=== PATIENT | female | born 1985 | race African-American/Black ===

== ENCOUNTER 2018-05-23 13:27 | Inpatient (IN) ==
[2018-05-23] MEDS ORDERED: 0.9 % Sodium Chloride 1,000 ML IVC ONE ×3 (13:29→16:33)
--- NOTE | 2018-05-23 13:40 | Emergency Department Note ---
Disposition Clinical Impression: Elevated troponin, Hyperkalemia, Acute hepatic encephalopathy Altered mental status Qualifiers: Altered mental status type: unspecified Qualified Code(s): R41.82 - Altered mental status, unspecified Diabetic ketoacidosis Qualifiers: Diabetes mellitus type: type 1 Diabetes mellitus complication detail: without coma Qualified Code(s): E10.10 - Type 1 diabetes mellitus with ketoacidosis without coma Disposition: Admitted As Inpatient Condition: Critical Time of Disposition: 17:16 General Adult HPI - General Chief complaint: ED Altered Mental Status Stated complaint: Altered mental status Time Seen by Provider: 05/23/18 13:29 Source: EMS Mode of arrival: EMS Limitations: altered mental status Nursing Notes Reviewed: Yes Vital Signs Reviewed: Yes - History of Present Illness HPI Narrative: This Is a 32-year-old female with past medical history significant for heroin de pendency, depression, history of suicidal ideation, diabetes who presents via EMS with altered mental status and confusion. Per EMS, patient has not used heroin for the past 4 days. EMS was called by patient's father. On EMS arrival, patient was noted to be altered and unresponsive. Blood glucose was greater than 400 Otherwise no further information able to be obtained at this time. Patient is altered, and continues to moan and groan, but will not respond to verbal or tactile stimulation. Per mother, patient was found by father passed out on the bathroom floor about 3 days ago. He found her with needles, and a bag of what she thinks was heroin. Father took away needles and drugs, but suspects patient may have been able to find another needle. Over the past night, patient was increasingly agitated, nauseous, vomiting, combative. Pt was found this morning somnolent, lethargic. Father then called EMS to bring patient to ED. Pt Subjective Complaint: AMS Onset (ago): day(s) (3 days ago) Associated symptoms: Reports: other (Altered mental status and confusion) - Related Data Home Medications Medication Instructions Recorded Confirmed Etonogestrel [Nexplanon] 68 mg SQ DAILY 11/24/17 11/24/17 Lantus 45 units SQ HS 11/24/17 11/24/17 NovoLOG See Protocol SQ TID 11/24/17 11/24/17 RX: Sertraline [Zoloft] 1 tab PO DAILY 11/24/17 11/24/17 Allergies Allergy/AdvReac Type Severity Reaction Status Date / Time No Known Allergies Allergy Verified 10/30/15 14:08 Limitations: ROS unobtainable due to patients medical condition Past Medical History - Past Medical History Source: old records reviewed, obtained from family Medical history: Reports: diabetes, other Surgical history: Reports: , other Psychiatric history: Reports: anxiety, depression, prior suicide attempt - Social History Smoking Status: Never smoker Smokeless Tobacco Status: No Alcohol use: Reports: none Drug use: Reports: none Physical Exam - General Limitations: altered mental status General appearance: appears intoxicated, lethargic - Head Head exam: atraumatic, normocephalic, normal inspection - Eye Eye exam: Present: mydriasis. Absent: scleral icterus - ENT ENT exam: mucous membranes dry - Chest Chest inspection: Present: normal inspection, symmetric chest wall rise - Respiratory Respiratory exam: Present: normal lung sounds bilaterally - Cardiovascular Cardiovascular exam: Present: regular rate, normal rhythm, +S1, +S2 - Abdominal Exam Abdominal exam: Present: soft, normal bowel sounds. Absent: distention, guarding, rebound, rigidity - Extremities Exam Extremities exam: Present: normal inspection, full ROM, tenderness - Neurological Exam Neurological exam: Present: other (Altered mental status; confused; unresponsive to verbal or tactile stimulation) - Expanded Neurological Exam Coma Scale Eye Opening: To Pain Coma Scale Motor Response: Withdraws to Pain Coma Scale Verbal Response: Incomprehensible Coma Scale Total: 8 - Skin Skin exam: Present: dry, other (Multiple boils, abrasion, skin lesions on upper and lower extremities.) Course - Reevaluation(s) Reevaluation #1: Patient seen and examined with Dr. Tan and Dr. Short. Patient presents via EMS with altered mental status. Patient does not respond to verbal or tactile stimulation. EMS notes patient had glucose greater than 400. Patient has history of IV drug abuse. We will attempt to obtain IV access, give fluid bolus, ordered EKG, chest CT of the head without contrast, x-ray chest. We will obtain routine labs. We will attempt to get further history Time: 14:15 Reevaluation #2: Initial vitals show T = 89.9, HR = 83, RR = 23, BP = 85/48, O2 = 100%. We will attempt to obtain IV access, and give liter bolus of fluids. Given patient's temperature, will use warm blankets and bear hugger warmer. Time: 14:17 Reevaluation #3: Unable to obtain IV access. Instead I O access was obtained. Femoral line was placed by Dr. Short in right femoral vein. Lab work notable for U tox showing positive cocaine. Urinalysis showed glucose greater than 1000, ketones, moderate blood. Head CT was negative. VBG was notable for pH = 6.89, CO2 = less than 13. Ammonia = 227, troponin = 1.02, beta hydroxybutyric acid = greater than 2.00. Patient was started on fluids, then bicarbonate and bicarbonate drip. Also was given lactulose and aspirin. Time: 16:14 Additional Reevaluation(s): Lab work showed ammonia = 227, creatinine kinase = 292, troponin = 1.02. Additionally an 9 gap = 25, potassium = 8.3. Lactic acid = 2.2. Glucose = 1275. Patient given calcium gluconate for hyperkalemia. Given lactulose for elevated ammonia. Started on insulin drip. Corrected sodium = 139. Patient additionally on bicarbonate drip. Patient will be transferred to ICU. Specialty Cook Dr. Shultz accepted patient. Vital Signs Temperature 89.9 F L 05/23/18 13:35 Pulse Rate 83 05/23/18 13:35 Respiratory Rate 23 05/23/18 13:35 Blood Pressure 85/48 05/23/18 13:35 O2 Sat by Pulse Oximetry 100 05/23/18 13:35 Temperature 92.0 F L 05/23/18 16:57 Pulse Rate 97 05/23/18 16:57 Respiratory Rate 30 05/23/18 16:57 Blood Pressure 90/56 05/23/18 16:57 O2 Sat by Pulse Oximetry 100 05/23/18 16:57 Oxygen Delivery Oxygen Delivery Room Air Medical Decision Making - [place] Narrative Medical decision making narrative: 7:28-year-old female with past medical history significant for insulin-dependent diabetes mellitus, heroin addiction, previous suicidal ideation who presents with altered mental status via EMS. Patient was found using heroin 3 days ago in her home. It was suspected that that was her last use. However as of last night, patient was noted to be nauseous and vomiting. Patient found passed out in bathroom floor this morning. On arrival patient was altered and confused. EMS noted blood glucose greater than 400. Would not respond to verbal or tactile stimulation. Patient was initially hypothermic = 89.9. She was also hypotensive = 85/48. Unable to give vascular access. Intraosseous line was placed. Patient was given 2 L normal saline. Femoral line was then placed. Urine toxicology was positive for cocaine. Urinalysis showed glucose greater than 1000 and ketones with moderate blood. Initial VBG had pH = 6.89. Initial ammonia = 227. Patient was started on bicarbonate drip and given lactulose. Normal saline was continued. Initial glucose = 1275. Anion gap = 25. Troponin was also elevated = 1.02, and patient was hyperkalemic = 8.3. Patient was given calcium gluconate and started on insulin drip. She remained somnolent and lethargic. Beta hydroxy B check acid also elevated. Patient in DKA, and also possibly an heroin withdrawal or with cocaine abuse. Patient was discussed with drug clerk, Dr. Shultz and transferred to ICU. - Differential Diagnosis DKA, Drug Overdose, Acute Kidney Injury, Dehydration, Hyperkalemia - Medical Records Medical records reviewed: Yes I reviewed the patient's medical records. - Lab Data Lab results reviewed: Yes I reviewed the patient's lab results. Result diagrams: 05/23/18 16:06 05/23/18 15:07 Lab Results 05/23/18 05/23/18 05/23/18 Range/Units 13:53 13:53 15:07 WBC (4.3-11.1) K/mcL RBC (3.82-4.97) M/mcL Hgb (11.5-15.4) g/dL Hct (35.3-44.9) % MCV (83.0-100.0) fL MCH (28.0-33.3) pg MCHC (31.6-35.5) g/dL RDW (11.5-14.5) % Plt Count (140-400) K/mcL MPV (9.4-12.4) fL Immature Plt Fraction (1.1-6.1) % PT (9.4-12.1) Seconds INR APTT (26.0-36.0) Seconds VBG pH (7.32-7.42) pH Units VBG pCO2 (41-51) mmHg VBG pO2 (25-50) mmHg VBG HCO3 Carboxyhemoglobin (0-5) % Sodium 120 L* (136-145) mEq/L Potassium 8.3 H* (3.5-5.1) mEq/L Chloride 91 L (98-107) mEq/L Carbon Dioxide < 4 L* (23-29) mEq/L BUN 41 H (6-20) mg/dL Creatinine 1.98 H (0.60-1.20) mg/dL Est GFR ( Amer) 35 L (> 60) Est GFR (Non-Af Amer) 29 L (> 60) BUN/Creatinine Ratio 21 (6-26) Glucose 1275 H* (70-105) mg/dL Calculated Osmolality 325 H (280-300) Lactic Acid (0.5-2.2) mmol/L Calcium 7.0 L (8.6-10.3) mg/dL Total Bilirubin 0.4 (0.3-1.0) mg/dL Direct Bilirubin 0.1 (0.0-0.2) mg/dL Indirect Bilirubin 0.3 (0.0-1.2) mg/dL AST 29 (13-39) Units/L ALT 39 (7-52) Units/L Alkaline Phosphatase 98 (34-104) Units/L Ammonia (16-53) mcmol/L Creatine Kinase 292 H (30-223) Units/L Troponin I 1.02 H* (< 0.04) ng/mL Serum Total Protein 6.1 L (6.4-8.9) g/dL Albumin 3.5 (3.5-5.7) g/dL Globulin 2.6 (2.4-3.5) g/dL Albumin/Globulin Ratio 1.3 (1.1-2.2) Beta-Hydroxybutyric Acd (0.02-0.27) mmol/L TSH 0.658 (0.340-5.600) mcIU/mL Serum , Qual (Negative) Ur Specimen Adequacy See below A Urine Color Yellow (Yellow) Urine Clarity Slightly Hazy (Clear) Urine pH 5.0 (5.0-8.0) pH Units Ur Specific Endeavor 1.027 H (1.010-1.025) Urine Protein 30 H (Neg-Trace) mg/dL Urine Glucose (UA) >=1000 H (Normal) mg/dL Urine Ketones 40 H (Negative) mg/dL Urine Blood Moderate H (Negative) Urine Nitrite Negative (Negative) Urine Bilirubin Negative (Negative) Urine Urobilinogen Normal (Normal) mg/dL Ur Leukocyte Esterase Negative (Negative) Urine Microscopic RBC 0-3 (0-3) per hpf Urine Microscopic WBC 0-3 (0-3) per hpf Ur Squamous Epith Cells Moderate H (None-Few) per lpf Urine Bacteria None Seen (None-Few) per hpf Hyaline Casts None Seen (None-Few) per lpf Ur Culture Indicated? NO (NO) Urine Opiates Screen Negative (Dnpalo=255) ng/mL Ur Barbiturates Screen Negative (Pixwbe=130) ng/mL Ur Phencyclidine Scrn Negative (Cutoff=25) ng/mL Ur Amphetamines Screen Negative (Vhitsl=7249) ng/mL U Benzodiazepines Scrn Negative (Pvscka=589) ng/mL Urine Cocaine Screen Positive H (Cutoff= 300) ng/mL U Marijuana (THC) Screen Negative (Cutoff = 50) ng/mL Ur Drug Screen Interp See Below Ethyl Alcohol < 10 (Less than 10) mg/dL Person Notif of Crit 05/23/18 05/23/18 05/23/18 Range/Units 15:07 15:07 15:07 WBC (4.3-11.1) K/mcL RBC (3.82-4.97) M/mcL Hgb (11.5-15.4) g/dL Hct (35.3-44.9) % MCV (83.0-100.0) fL MCH (28.0-33.3) pg MCHC (31.6-35.5) g/dL RDW (11.5-14.5) % Plt Count (140-400) K/mcL MPV (9.4-12.4) fL Immature Plt Fraction (1.1-6.1) % PT (9.4-12.1) Seconds INR APTT (26.0-36.0) Seconds VBG pH (7.32-7.42) pH Units VBG pCO2 (41-51) mmHg VBG pO2 (25-50) mmHg VBG HCO3 Carboxyhemoglobin 7.1 H (0-5) % Sodium (136-145) mEq/L Potassium (3.5-5.1) mEq/L Chloride (98-107) mEq/L Carbon Dioxide (23-29) mEq/L BUN (6-20) mg/dL Creatinine (0.60-1.20) mg/dL Est GFR ( Amer) (> 60) Est GFR (Non-Af Amer) (> 60) BUN/Creatinine Ratio (6-26) Glucose (70-105) mg/dL Calculated Osmolality (280-300) Lactic Acid (0.5-2.2) mmol/L Calcium (8.6-10.3) mg/dL Total Bilirubin (0.3-1.0) mg/dL Direct Bilirubin (0.0-0.2) mg/dL Indirect Bilirubin (0.0-1.2) mg/dL AST (13-39) Units/L ALT (7-52) Units/L Alkaline Phosphatase (34-104) Units/L Ammonia 227 H (16-53) mcmol/L Creatine Kinase (30-223) Units/L Troponin I (< 0.04) ng/mL Serum Total Protein (6.4-8.9) g/dL Albumin (3.5-5.7) g/dL Globulin (2.4-3.5) g/dL Albumin/Globulin Ratio (1.1-2.2) Beta-Hydroxybutyric Acd > 2.00 H (0.02-0.27) mmol/L TSH (0.340-5.600) mcIU/mL Serum , Qual (Negative) Ur Specimen Adequacy Urine Color (Yellow) Urine Clarity (Clear) Urine pH (5.0-8.0) pH Units Ur Specific Endeavor (1.010-1.025) Urine Protein (Neg-Trace) mg/dL Urine Glucose (UA) (Normal) mg/dL Urine Ketones (Negative) mg/dL Urine Blood (Negative) Urine Nitrite (Negative) Urine Bilirubin (Negative) Urine Urobilinogen (Normal) mg/dL Ur Leukocyte Esterase (Negative) Urine Microscopic RBC (0-3) per hpf Urine Microscopic WBC (0-3) per hpf Ur Squamous Epith Cells (None-Few) per lpf Urine Bacteria (None-Few) per hpf Hyaline Casts (None-Few) per lpf Ur Culture Indicated? (NO) Urine Opiates Screen (Sscojy=511) ng/mL Ur Barbiturates Screen (Jtdcvd=436) ng/mL Ur Phencyclidine Scrn (Cutoff=25) ng/mL Ur Amphetamines Screen (Hafiba=3514) ng/mL U Benzodiazepines Scrn (Vcjwzf=184) ng/mL Urine Cocaine Screen (Cutoff= 300) ng/mL U Marijuana (THC) Screen (Cutoff = 50) ng/mL Ur Drug Screen Interp Ethyl Alcohol (Less than 10) mg/dL Person Notif of Crit 05/23/18 05/23/18 05/23/18 Range/Units 15:25 16:06 16:06 WBC 45.9 H* (4.3-11.1) K/mcL RBC 4.26 (3.82-4.97) M/mcL Hgb 12.0 (11.5-15.4) g/dL Hct 40.3 (35.3-44.9) % MCV 94.6 (83.0-100.0) fL MCH 28.2 (28.0-33.3) pg MCHC 29.8 L (31.6-35.5) g/dL RDW 14.7 H (11.5-14.5) % Plt Count 558 H (140-400) K/mcL MPV 9.5 (9.4-12.4) fL Immature Plt Fraction 1.4 (1.1-6.1) % PT 15.7 H (9.4-12.1) Seconds INR 1.4 APTT 40.8 H (26.0-36.0) Seconds VBG pH 6.89 L* (7.32-7.42) pH Units VBG pCO2 < 13 L (41-51) mmHg VBG pO2 159 H (25-50) mmHg VBG HCO3 TNP Carboxyhemoglobin (0-5) % Sodium (136-145) mEq/L Potassium (3.5-5.1) mEq/L Chloride (98-107) mEq/L Carbon Dioxide (23-29) mEq/L BUN (6-20) mg/dL Creatinine (0.60-1.20) mg/dL Est GFR ( Amer) (> 60) Est GFR (Non-Af Amer) (> 60) BUN/Creatinine Ratio (6-26) Glucose (70-105) mg/dL Calculated Osmolality (280-300) Lactic Acid (0.5-2.2) mmol/L Calcium (8.6-10.3) mg/dL Total Bilirubin (0.3-1.0) mg/dL Direct Bilirubin (0.0-0.2) mg/dL Indirect Bilirubin (0.0-1.2) mg/dL AST (13-39) Units/L ALT (7-52) Units/L Alkaline Phosphatase (34-104) Units/L Ammonia (16-53) mcmol/L Creatine Kinase (30-223) Units/L Troponin I (< 0.04) ng/mL Serum Total Protein (6.4-8.9) g/dL Albumin (3.5-5.7) g/dL Globulin (2.4-3.5) g/dL Albumin/Globulin Ratio (1.1-2.2) Beta-Hydroxybutyric Acd (0.02-0.27) mmol/L TSH (0.340-5.600) mcIU/mL Serum , Qual (Negative) Ur Specimen Adequacy Urine Color (Yellow) Urine Clarity (Clear) Urine pH (5.0-8.0) pH Units Ur Specific Endeavor (1.010-1.025) Urine Protein (Neg-Trace) mg/dL Urine Glucose (UA) (Normal) mg/dL Urine Ketones (Negative) mg/dL Urine Blood (Negative) Urine Nitrite (Negative) Urine Bilirubin (Negative) Urine Urobilinogen (Normal) mg/dL Ur Leukocyte Esterase (Negative) Urine Microscopic RBC (0-3) per hpf Urine Microscopic WBC (0-3) per hpf Ur Squamous Epith Cells (None-Few) per lpf Urine Bacteria (None-Few) per hpf Hyaline Casts (None-Few) per lpf Ur Culture Indicated? (NO) Urine Opiates Screen (Rztmwp=642) ng/mL Ur Barbiturates Screen (Szfffp=420) ng/mL Ur Phencyclidine Scrn (Cutoff=25) ng/mL Ur Amphetamines Screen (Acspss=5918) ng/mL U Benzodiazepines Scrn (Qaqcot=756) ng/mL Urine Cocaine Screen (Cutoff= 300) ng/mL U Marijuana (THC) Screen (Cutoff = 50) ng/mL Ur Drug Screen Interp Ethyl Alcohol (Less than 10) mg/dL Person Notif of Elina Zeniaaubrey Langford 05/23/18 05/23/18 Range/Units 16:06 16:06 WBC (4.3-11.1) K/mcL RBC (3.82-4.97) M/mcL Hgb (11.5-15.4) g/dL Hct (35.3-44.9) % MCV (83.0-100.0) fL MCH (28.0-33.3) pg MCHC (31.6-35.5) g/dL RDW (11.5-14.5) % Plt Count (140-400) K/mcL MPV (9.4-12.4) fL Immature Plt Fraction (1.1-6.1) % PT (9.4-12.1) Seconds INR APTT (26.0-36.0) Seconds VBG pH (7.32-7.42) pH Units VBG pCO2 (41-51) mmHg VBG pO2 (25-50) mmHg VBG HCO3 Carboxyhemoglobin (0-5) % Sodium (136-145) mEq/L Potassium (3.5-5.1) mEq/L Chloride (98-107) mEq/L Carbon Dioxide (23-29) mEq/L BUN (6-20) mg/dL Creatinine (0.60-1.20) mg/dL Est GFR ( Amer) (> 60) Est GFR (Non-Af Amer) (> 60) BUN/Creatinine Ratio (6-26) Glucose (70-105) mg/dL Calculated Osmolality (280-300) Lactic Acid 2.2 (0.5-2.2) mmol/L Calcium (8.6-10.3) mg/dL Total Bilirubin (0.3-1.0) mg/dL Direct Bilirubin (0.0-0.2) mg/dL Indirect Bilirubin (0.0-1.2) mg/dL AST (13-39) Units/L ALT (7-52) Units/L Alkaline Phosphatase (34-104) Units/L Ammonia (16-53) mcmol/L Creatine Kinase (30-223) Units/L Troponin I (< 0.04) ng/mL Serum Total Protein (6.4-8.9) g/dL Albumin (3.5-5.7) g/dL Globulin (2.4-3.5) g/dL Albumin/Globulin Ratio (1.1-2.2) Beta-Hydroxybutyric Acd (0.02-0.27) mmol/L TSH (0.340-5.600) mcIU/mL Serum , Qual Negative (Negative) Ur Specimen Adequacy Urine Color (Yellow) Urine Clarity (Clear) Urine pH (5.0-8.0) pH Units Ur Specific Endeavor (1.010-1.025) Urine Protein (Neg-Trace) mg/dL Urine Glucose (UA) (Normal) mg/dL Urine Ketones (Negative) mg/dL Urine Blood (Negative) Urine Nitrite (Negative) Urine Bilirubin (Negative) Urine Urobilinogen (Normal) mg/dL Ur Leukocyte Esterase (Negative) Urine Microscopic RBC (0-3) per hpf Urine Microscopic WBC (0-3) per hpf Ur Squamous Epith Cells (None-Few) per lpf Urine Bacteria (None-Few) per hpf Hyaline Casts (None-Few) per lpf Ur Culture Indicated? (NO) Urine Opiates Screen (Kjxvkx=464) ng/mL Ur Barbiturates Screen (Nbsckm=105) ng/mL Ur Phencyclidine Scrn (Cutoff=25) ng/mL Ur Amphetamines Screen (Lrxrhy=2549) ng/mL U Benzodiazepines Scrn (Jhciop=643) ng/mL Urine Cocaine Screen (Cutoff= 300) ng/mL U Marijuana (THC) Screen (Cutoff = 50) ng/mL Ur Drug Screen Interp Ethyl Alcohol (Less than 10) mg/dL Person Notif of Crit - Radiology Data Radiology results reviewed: Yes I reviewed the patient's radiology results. Attestation Statement - Attestation Attestation: I, Leandro Tan DO, examined this patient [id number] and my medical decision-making was reviewed with Kalani Salcido DO , Resident Physician. I agree with the documented findings, disposition and treatment plan as described except to the extent set forth below. Please see my progress notes for details.
[2018-05-23 14:16] LABS: Bilirubin,Urine Negative (Negative); Blood,Urine Moderate (Negative); Clarity,Urine Slightly Hazy (Clear); Color,Urine Yellow (Yellow); Glucose,Urine (UA) >=1000 mg/dL (Normal); Ketones,Urine 40 mg/dL (Negative); Leukocyte Esterase,Urine Negative (Negative); Nitrite,Urine Negative (Negative); Protein,Urine 30 mg/dL (Neg-Trace); Specific Gravity,Urine 1.027 (1.010-1.025); Urobilinogen,Urine Normal (Normal)
[2018-05-23 14:20] LABS: Bacteria,Urine None Seen per hpf (None-Few); Hyaline Casts,Urine None Seen per lpf (None-Few); RBC,Urine 0-3 per hpf (0-3); Squamous Epithelial Cell,Urine Moderate per lpf (None-Few); WBC,Urine 0-3 per hpf (0-3)
[2018-05-23] MEDS ORDERED: Lidocaine 1% 20 ML MDV ID ONE (15:02)
[2018-05-23 15:12] LABS: Amphetamine Screen,Urine Negative ng/mL (Cutoff=1000); Barbiturate Screen,Urine Negative ng/mL (Cutoff=200); Benzodiazepines Screen,Urine Negative ng/mL (Cutoff=200); Cannabinoid Screen,Urine Negative ng/mL (Cutoff = 50); Cocaine Screen,Urine Positive ng/mL (Cutoff= 300); Opiate Screen,Urine Negative ng/mL (Cutoff=300); Phencyclidine Screen,Urine Negative ng/mL (Cutoff=25)
[2018-05-23] MEDS ORDERED: Sodium Bicarbonate 50 MEQ/50 ML VIAL IVP ONE (15:30)
[2018-05-23 15:31] LABS: VBG PCO2 < 13 mmHg (41-51); VBG PH 6.89 pH Units (7.32-7.42); VBG PO2 159 mmHg (25-50)
[2018-05-23 15:57] LABS: Thyroid Stimulating Hormone 0.658 mcIU/mL (0.340-5.600); Troponin I 1.02 ng/mL (< 0.04)
[2018-05-23] MEDS ORDERED: Lactulose 200 GM/300 ML (for enema) RC STA (15:57)
[2018-05-23] MEDS ORDERED: Sodium Bicarbonate 150 MEQ in 0.45 % Sodium Chloride 1,000 ML IVC SCH (16:00)
--- NOTE | 2018-05-23 16:04 | Emergency Department Note ---
Disposition Clinical Impression: Altered mental status Qualifiers: Altered mental status type: unspecified Qualified Code(s): R41.82 - Altered mental status, unspecified Disposition: Admitted As Inpatient Condition: Critical Referrals: Lynda Hirsch CNP [Primary Care Provider] - Forms: ED Satisfaction Letter General Adult HPI - General Chief complaint: ED Altered Mental Status Stated complaint: Altered mental status Time Seen by Provider: 05/23/18 13:29 Source: EMS Mode of arrival: EMS Limitations: altered mental status - History of Present Illness Pain Scale: 0 Associated symptoms: Reports: other (Altered mental status and confusion) - Related Data Home Medications Medication Instructions Recorded Confirmed Etonogestrel [Nexplanon] 68 mg SQ DAILY 11/24/17 11/24/17 Lantus 45 units SQ HS 11/24/17 11/24/17 NovoLOG See Protocol SQ TID 11/24/17 11/24/17 Sertraline [Zoloft] 1 tab PO DAILY 11/24/17 11/24/17 Allergies Allergy/AdvReac Type Severity Reaction Status Date / Time No Known Allergies Allergy Verified 10/30/15 14:08 Past Medical History - Past Medical History Medical history: Reports: diabetes, other Surgical history: Reports: , other Psychiatric history: Reports: anxiety, depression, prior suicide attempt - Social History Smoking Status: Never smoker Smokeless Tobacco Status: No Alcohol use: Reports: none Drug use: Reports: none Physical Exam - General Limitations: altered mental status General appearance: appears intoxicated, lethargic Course Vital Signs Temperature 89.9 F L 05/23/18 13:35 Pulse Rate 83 05/23/18 13:35 Respiratory Rate 23 05/23/18 13:35 Blood Pressure 85/48 05/23/18 13:35 O2 Sat by Pulse Oximetry 100 05/23/18 13:35 Temperature 89.9 F L 05/23/18 15:25 Pulse Rate 85 05/23/18 15:25 Respiratory Rate 16 05/23/18 15:25 Blood Pressure 76/66 05/23/18 15:31 O2 Sat by Pulse Oximetry 99 05/23/18 15:25 Oxygen Delivery Oxygen Delivery Room Air Procedures - Central Line Placement Right Femoral Central Line Inserted*: Yes Central Line Catheter Replacement*: No Central Line Insertion: emergent Procedural Pause: verify patient name and date of , timeout performed per policy, luz marina and assess the site, assemble equipment and verify supplies, perform hand hygiene Patient Placed on Monitor/Pulse Ox: Yes During the Procedure: clinician is wearing sterile gloves, cap, mask,& gown during insertion, sterile field and sterile technique are maintained, patient's face is covered with drape or mask and wearing a cap, everyone in room is wearing a mask Central Line Prep: Chlorhexidine scrub Prep the Procedure Site: apply chloraprep to the skin using a back and forth scrubbing motion, apply chloraprep for 30 seconds (upper body), 1-2 min (femoral sites), allow prep to dry, drape the patient with a full body drape Local Anesthetic: lidocaine 1% Amount of anesthesia used (mL): 3 Ultrasound Used for Placement: Yes Central Line Lumen Inserted: triple Post Procedure: sutured in place, good blood return, all ports aspirated, flushed, capped, sterile dressing applied, guide wire removed and visualized Post Procedure X-Ray: tip of catheter in good position Patient Tolerated Procedure: well, no complications Complications: none Name of Clinician Inserting Central Line: Kieran Short DO Date: 05/23/18 Time: 16:03 Additional Comments: Procedure performed under direct supervision of Dr. Kai Tan who was present during the entirety of the procedure Medical Decision Making - Lab Data Result diagrams: 05/23/18 15:07 Lab Results 05/23/18 05/23/18 05/23/18 Range/Units 13:53 13:53 15:07 VBG pH (7.32-7.42) pH Units VBG pCO2 (41-51) mmHg VBG pO2 (25-50) mmHg VBG HCO3 Carboxyhemoglobin (0-5) % Ammonia (16-53) mcmol/L Troponin I 1.02 H* (< 0.04) ng/mL Beta-Hydroxybutyric Acd (0.02-0.27) mmol/L TSH 0.658 (0.340-5.600) mcIU/mL Ur Specimen Adequacy See below A Urine Color Yellow (Yellow) Urine Clarity Slightly Hazy (Clear) Urine pH 5.0 (5.0-8.0) pH Units Ur Specific [place] 1.027 H (1.010-1.025) Urine Protein 30 H (Neg-Trace) mg/dL Urine Glucose (UA) >=1000 H (Normal) mg/dL Urine Ketones 40 H (Negative) mg/dL Urine Blood Moderate H (Negative) Urine Nitrite Negative (Negative) Urine Bilirubin Negative (Negative) Urine Urobilinogen Normal (Normal) mg/dL Ur Leukocyte Esterase Negative (Negative) Urine Microscopic RBC 0-3 (0-3) per hpf Urine Microscopic WBC 0-3 (0-3) per hpf Ur Squamous Epith Cells Moderate H (None-Few) per lpf Urine Bacteria None Seen (None-Few) per hpf Hyaline Casts None Seen (None-Few) per lpf Ur Culture Indicated? NO (NO) Urine Opiates Screen Negative (Obnzzp=089) ng/mL Ur Barbiturates Screen Negative (Zlhsyj=749) ng/mL Ur Phencyclidine Scrn Negative (Cutoff=25) ng/mL Ur Amphetamines Screen Negative (Ijzvlm=9992) ng/mL U Benzodiazepines Scrn Negative (Vhawrk=536) ng/mL Urine Cocaine Screen Positive H (Cutoff= 300) ng/mL U Marijuana (THC) Screen Negative (Cutoff = 50) ng/mL Ur Drug Screen Interp See Below Person Notif of Crit 05/23/18 05/23/18 05/23/18 Range/Units 15:07 15:07 15:07 VBG pH (7.32-7.42) pH Units VBG pCO2 (41-51) mmHg VBG pO2 (25-50) mmHg VBG HCO3 Carboxyhemoglobin 7.1 H (0-5) % Ammonia 227 H (16-53) mcmol/L Troponin I (< 0.04) ng/mL Beta-Hydroxybutyric Acd > 2.00 H (0.02-0.27) mmol/L TSH (0.340-5.600) mcIU/mL Ur Specimen Adequacy Urine Color (Yellow) Urine Clarity (Clear) Urine pH (5.0-8.0) pH Units Ur Specific [place] (1.010-1.025) Urine Protein (Neg-Trace) mg/dL Urine Glucose (UA) (Normal) mg/dL Urine Ketones (Negative) mg/dL Urine Blood (Negative) Urine Nitrite (Negative) Urine Bilirubin (Negative) Urine Urobilinogen (Normal) mg/dL Ur Leukocyte Esterase (Negative) Urine Microscopic RBC (0-3) per hpf Urine Microscopic WBC (0-3) per hpf Ur Squamous Epith Cells (None-Few) per lpf Urine Bacteria (None-Few) per hpf Hyaline Casts (None-Few) per lpf Ur Culture Indicated? (NO) Urine Opiates Screen (Kavgll=777) ng/mL Ur Barbiturates Screen (Cthkqq=317) ng/mL Ur Phencyclidine Scrn (Cutoff=25) ng/mL Ur Amphetamines Screen (Jroftc=6662) ng/mL U Benzodiazepines Scrn (Yzhahr=972) ng/mL Urine Cocaine Screen (Cutoff= 300) ng/mL U Marijuana (THC) Screen (Cutoff = 50) ng/mL Ur Drug Screen Interp Person Notif of Crit 05/23/18 Range/Units 15:25 VBG pH 6.89 L* (7.32-7.42) pH Units VBG pCO2 < 13 L (41-51) mmHg VBG pO2 159 H (25-50) mmHg VBG HCO3 TNP Carboxyhemoglobin (0-5) % Ammonia (16-53) mcmol/L Troponin I (< 0.04) ng/mL Beta-Hydroxybutyric Acd (0.02-0.27) mmol/L TSH (0.340-5.600) mcIU/mL Ur Specimen Adequacy Urine Color (Yellow) Urine Clarity (Clear) Urine pH (5.0-8.0) pH Units Ur Specific [place] (1.010-1.025) Urine Protein (Neg-Trace) mg/dL Urine Glucose (UA) (Normal) mg/dL Urine Ketones (Negative) mg/dL Urine Blood (Negative) Urine Nitrite (Negative) Urine Bilirubin (Negative) Urine Urobilinogen (Normal) mg/dL Ur Leukocyte Esterase (Negative) Urine Microscopic RBC (0-3) per hpf Urine Microscopic WBC (0-3) per hpf Ur Squamous Epith Cells (None-Few) per lpf Urine Bacteria (None-Few) per hpf Hyaline Casts (None-Few) per lpf Ur Culture Indicated? (NO) Urine Opiates Screen (Jfmcql=417) ng/mL Ur Barbiturates Screen (Uaccjx=035) ng/mL Ur Phencyclidine Scrn (Cutoff=25) ng/mL Ur Amphetamines Screen (Mpniem=4314) ng/mL U Benzodiazepines Scrn (Ammxpb=554) ng/mL Urine Cocaine Screen (Cutoff= 300) ng/mL U Marijuana (THC) Screen (Cutoff = 50) ng/mL Ur Drug Screen Interp Person Notif of Elina Langford Attestation Statement - Attestation Attestation: I, Leandro Tan DO, examined this patient [id number] and my medical decision-making was reviewed with Kieran Short DO , Resident Physician. I agree with the documented findings, disposition and treatment plan as described except to the extent set forth below. Please see my progress notes for details.
[2018-05-23 16:22] LABS: Basophils % 0.3 %; Eosinophils % 0.1 %; Monocytes % 4.4 %
[2018-05-23 16:23] LABS: Mean Corpuscular HGB Conc 29.8 g/dL (31.6-35.5); Mean Corpuscular Hemoglobin 28.2 pg (28.0-33.3); Red Cell Distribution Width 14.7 % (11.5-14.5)
[2018-05-23 16:30] LABS: Alanine Aminotransferase 39 Units/L (7-52); Albumin 3.5 g/dL (3.5-5.7); Albumin/Globulin Ratio 1.3 (1.1-2.2); Alkaline Phosphatase 98 Units/L (34-104); Aspartate Amino Transferase 29 Units/L (13-39); BUN/Creatinine Ratio 21 (6-26); Bilirubin,Direct 0.1 mg/dL (0.0-0.2); Bilirubin,Indirect 0.3 mg/dL (0.0-1.2); Bilirubin,Total 0.4 mg/dL (0.3-1.0); Blood Urea Nitrogen 41 mg/dL (6-20); Chloride 91 mEq/L (98-107); Creatine Kinase 292 Units/L (30-223); Ethanol < 10 mg/dL (Less than 10); Globulin 2.6 g/dL (2.4-3.5); Potassium 8.3 mEq/L (3.5-5.1); Sodium 120 mEq/L (136-145); Total Protein 6.1 g/dL (6.4-8.9); eGFR For Non-African Americans 29 (> 60)
[2018-05-23 16:30] LABS: INR 1.4; Prothrombin Time 15.7 Seconds (9.4-12.1)
[2018-05-23] MEDS ORDERED: Lactulose 200 GM, Sodium Chloride IRRigation 700 ML RC ONE (16:30)
[2018-05-23 16:31] LABS: Carbon Dioxide < 4 mEq/L (23-29); Osmolality,Calculated 325 (280-300)
[2018-05-23 16:32] LABS: Glucose 1275 mg/dL (70-105)
[2018-05-23 16:32] LABS: Activated Partial Thrombo Time 40.8 Seconds (26.0-36.0)
[2018-05-23] MEDS ORDERED: *HR* Dextrose 50 % in Water (Syg) 50 ML SYRINGE IVP PRN (16:32)
[2018-05-23 16:36] LABS: Basophils # 0.1 K/mcL (0.0-0.2); Eosinophils # 0.1 K/mcL (0.0-0.6); Hematocrit 40.3 % (35.3-44.9); Immature Granulocytes % 2.9 % (0-4); Immature Platelets 1.4 % (1.1-6.1); Lymphocytes # 5.8 K/mcL (0.6-4.6); Lymphocytes % 12.6 %; Mean Corpuscular Volume 94.6 fL (83.0-100.0); Mean Platelet Volume 9.5 fL (9.4-12.4); Neutrophils # 36.6 K/mcL (1.6-8.9); Platelet Count 558 K/mcL (140-400); Red Blood Count 4.26 M/mcL (3.82-4.97); Segmented Neutrophils % 79.7 %
--- NOTE | 2018-05-23 16:47 | Emergency Department Note ---
Disposition Clinical Impression: Diabetic ketoacidosis, Elevated troponin, Hyperkalemia, Acute hepatic encephalopathy Altered mental status Qualifiers: Altered mental status type: unspecified Qualified Code(s): R41.82 - Altered mental status, unspecified Disposition: Admitted As Inpatient Condition: Critical Referrals: Lynda Hirsch, [employer] [Primary Care Provider] - Forms: ED Satisfaction Letter Time of Disposition: 16:57 General Adult HPI - General Chief complaint: ED Altered Mental Status Stated complaint: Altered mental status Time Seen by Provider: 05/23/18 13:29 Source: EMS Mode of arrival: EMS Limitations: altered mental status - History of Present Illness Pain Scale: 0 Associated symptoms: Reports: other (Altered mental status and confusion) - Related Data Home Medications Medication Instructions Recorded Confirmed Etonogestrel [Nexplanon] 68 mg SQ DAILY 11/24/17 11/24/17 Lantus 45 units SQ HS 11/24/17 11/24/17 NovoLOG See Protocol SQ TID 11/24/17 11/24/17 Sertraline [Zoloft] 1 tab PO DAILY 11/24/17 11/24/17 Allergies Allergy/AdvReac Type Severity Reaction Status Date / Time No Known Allergies Allergy Verified 10/30/15 14:08 Past Medical History - Past Medical History Medical history: Reports: diabetes, other Surgical history: Reports: , other Psychiatric history: Reports: anxiety, depression, prior suicide attempt - Social History Smoking Status: Never smoker Smokeless Tobacco Status: No Alcohol use: Reports: none Drug use: Reports: none Physical Exam - General Limitations: altered mental status General appearance: appears intoxicated, lethargic Course Vital Signs Temperature 89.9 F L 05/23/18 13:35 Pulse Rate 83 05/23/18 13:35 Respiratory Rate 23 05/23/18 13:35 Blood Pressure 85/48 05/23/18 13:35 O2 Sat by Pulse Oximetry 100 05/23/18 13:35 Temperature 89.9 F L 05/23/18 15:25 Pulse Rate 94 05/23/18 16:33 Respiratory Rate 27 05/23/18 16:33 Blood Pressure 96/58 05/23/18 16:33 O2 Sat by Pulse Oximetry 100 05/23/18 16:33 Oxygen Delivery Oxygen Delivery Room Air Medical Decision Making - Lab Data Result diagrams: 05/23/18 15:07 Lab Results 05/23/18 05/23/18 05/23/18 Range/Units 13:53 13:53 15:07 PT (9.4-12.1) Seconds INR APTT (26.0-36.0) Seconds VBG pH (7.32-7.42) pH Units VBG pCO2 (41-51) mmHg VBG pO2 (25-50) mmHg VBG HCO3 Carboxyhemoglobin (0-5) % Sodium 120 L* (136-145) mEq/L Potassium 8.3 H* (3.5-5.1) mEq/L Chloride 91 L (98-107) mEq/L Carbon Dioxide < 4 L* (23-29) mEq/L BUN 41 H (6-20) mg/dL Creatinine 1.98 H (0.60-1.20) mg/dL Est GFR ( Amer) 35 L (> 60) Est GFR (Non-Af Amer) 29 L (> 60) BUN/Creatinine Ratio 21 (6-26) Glucose 1275 H* (70-105) mg/dL Calculated Osmolality 325 H (280-300) Lactic Acid (0.5-2.2) mmol/L Calcium 7.0 L (8.6-10.3) mg/dL Total Bilirubin 0.4 (0.3-1.0) mg/dL Direct Bilirubin 0.1 (0.0-0.2) mg/dL Indirect Bilirubin 0.3 (0.0-1.2) mg/dL AST 29 (13-39) Units/L ALT 39 (7-52) Units/L Alkaline Phosphatase 98 (34-104) Units/L Ammonia (16-53) mcmol/L Creatine Kinase 292 H (30-223) Units/L Troponin I 1.02 H* (< 0.04) ng/mL Serum Total Protein 6.1 L (6.4-8.9) g/dL Albumin 3.5 (3.5-5.7) g/dL Globulin 2.6 (2.4-3.5) g/dL Albumin/Globulin Ratio 1.3 (1.1-2.2) Beta-Hydroxybutyric Acd (0.02-0.27) mmol/L TSH 0.658 (0.340-5.600) mcIU/mL Serum , Qual (Negative) Ur Specimen Adequacy See below A Urine Color Yellow (Yellow) Urine Clarity Slightly Hazy (Clear) Urine pH 5.0 (5.0-8.0) pH Units Ur Specific [place] 1.027 H (1.010-1.025) Urine Protein 30 H (Neg-Trace) mg/dL Urine Glucose (UA) >=1000 H (Normal) mg/dL Urine Ketones 40 H (Negative) mg/dL Urine Blood Moderate H (Negative) Urine Nitrite Negative (Negative) Urine Bilirubin Negative (Negative) Urine Urobilinogen Normal (Normal) mg/dL Ur Leukocyte Esterase Negative (Negative) Urine Microscopic RBC 0-3 (0-3) per hpf Urine Microscopic WBC 0-3 (0-3) per hpf Ur Squamous Epith Cells Moderate H (None-Few) per lpf Urine Bacteria None Seen (None-Few) per hpf Hyaline Casts None Seen (None-Few) per lpf Ur Culture Indicated? NO (NO) Urine Opiates Screen Negative (Kghxyn=350) ng/mL Ur Barbiturates Screen Negative (Xkgiug=255) ng/mL Ur Phencyclidine Scrn Negative (Cutoff=25) ng/mL Ur Amphetamines Screen Negative (Fbgled=9295) ng/mL U Benzodiazepines Scrn Negative (Adlatu=560) ng/mL Urine Cocaine Screen Positive H (Cutoff= 300) ng/mL U Marijuana (THC) Screen Negative (Cutoff = 50) ng/mL Ur Drug Screen Interp See Below Ethyl Alcohol < 10 (Less than 10) mg/dL Person Notif of Crit 05/23/18 05/23/18 05/23/18 Range/Units 15:07 15:07 15:07 PT (9.4-12.1) Seconds INR APTT (26.0-36.0) Seconds VBG pH (7.32-7.42) pH Units VBG pCO2 (41-51) mmHg VBG pO2 (25-50) mmHg VBG HCO3 Carboxyhemoglobin 7.1 H (0-5) % Sodium (136-145) mEq/L Potassium (3.5-5.1) mEq/L Chloride (98-107) mEq/L Carbon Dioxide (23-29) mEq/L BUN (6-20) mg/dL Creatinine (0.60-1.20) mg/dL Est GFR ( Amer) (> 60) Est GFR (Non-Af Amer) (> 60) BUN/Creatinine Ratio (6-26) Glucose (70-105) mg/dL Calculated Osmolality (280-300) Lactic Acid (0.5-2.2) mmol/L Calcium (8.6-10.3) mg/dL Total Bilirubin (0.3-1.0) mg/dL Direct Bilirubin (0.0-0.2) mg/dL Indirect Bilirubin (0.0-1.2) mg/dL AST (13-39) Units/L ALT (7-52) Units/L Alkaline Phosphatase (34-104) Units/L Ammonia 227 H (16-53) mcmol/L Creatine Kinase (30-223) Units/L Troponin I (< 0.04) ng/mL Serum Total Protein (6.4-8.9) g/dL Albumin (3.5-5.7) g/dL Globulin (2.4-3.5) g/dL Albumin/Globulin Ratio (1.1-2.2) Beta-Hydroxybutyric Acd > 2.00 H (0.02-0.27) mmol/L TSH (0.340-5.600) mcIU/mL Serum , Qual (Negative) Ur Specimen Adequacy Urine Color (Yellow) Urine Clarity (Clear) Urine pH (5.0-8.0) pH Units Ur Specific [place] (1.010-1.025) Urine Protein (Neg-Trace) mg/dL Urine Glucose (UA) (Normal) mg/dL Urine Ketones (Negative) mg/dL Urine Blood (Negative) Urine Nitrite (Negative) Urine Bilirubin (Negative) Urine Urobilinogen (Normal) mg/dL Ur Leukocyte Esterase (Negative) Urine Microscopic RBC (0-3) per hpf Urine Microscopic WBC (0-3) per hpf Ur Squamous Epith Cells (None-Few) per lpf Urine Bacteria (None-Few) per hpf Hyaline Casts (None-Few) per lpf Ur Culture Indicated? (NO) Urine Opiates Screen (Vndrmq=501) ng/mL Ur Barbiturates Screen (Hzbqpc=242) ng/mL Ur Phencyclidine Scrn (Cutoff=25) ng/mL Ur Amphetamines Screen (Dardyk=5883) ng/mL U Benzodiazepines Scrn (Guuqud=570) ng/mL Urine Cocaine Screen (Cutoff= 300) ng/mL U Marijuana (THC) Screen (Cutoff = 50) ng/mL Ur Drug Screen Interp Ethyl Alcohol (Less than 10) mg/dL Person Notif of Crit 05/23/18 05/23/18 05/23/18 Range/Units 15:25 16:06 16:06 PT 15.7 H (9.4-12.1) Seconds INR 1.4 APTT 40.8 H (26.0-36.0) Seconds VBG pH 6.89 L* (7.32-7.42) pH Units VBG pCO2 < 13 L (41-51) mmHg VBG pO2 159 H (25-50) mmHg VBG HCO3 TNP Carboxyhemoglobin (0-5) % Sodium (136-145) mEq/L Potassium (3.5-5.1) mEq/L Chloride (98-107) mEq/L Carbon Dioxide (23-29) mEq/L BUN (6-20) mg/dL Creatinine (0.60-1.20) mg/dL Est GFR ( Amer) (> 60) Est GFR (Non-Af Amer) (> 60) BUN/Creatinine Ratio (6-26) Glucose (70-105) mg/dL Calculated Osmolality (280-300) Lactic Acid (0.5-2.2) mmol/L Calcium (8.6-10.3) mg/dL Total Bilirubin (0.3-1.0) mg/dL Direct Bilirubin (0.0-0.2) mg/dL Indirect Bilirubin (0.0-1.2) mg/dL AST (13-39) Units/L ALT (7-52) Units/L Alkaline Phosphatase (34-104) Units/L Ammonia (16-53) mcmol/L Creatine Kinase (30-223) Units/L Troponin I (< 0.04) ng/mL Serum Total Protein (6.4-8.9) g/dL Albumin (3.5-5.7) g/dL Globulin (2.4-3.5) g/dL Albumin/Globulin Ratio (1.1-2.2) Beta-Hydroxybutyric Acd (0.02-0.27) mmol/L TSH (0.340-5.600) mcIU/mL Serum , Qual Negative (Negative) Ur Specimen Adequacy Urine Color (Yellow) Urine Clarity (Clear) Urine pH (5.0-8.0) pH Units Ur Specific [place] (1.010-1.025) Urine Protein (Neg-Trace) mg/dL Urine Glucose (UA) (Normal) mg/dL Urine Ketones (Negative) mg/dL Urine Blood (Negative) Urine Nitrite (Negative) Urine Bilirubin (Negative) Urine Urobilinogen (Normal) mg/dL Ur Leukocyte Esterase (Negative) Urine Microscopic RBC (0-3) per hpf Urine Microscopic WBC (0-3) per hpf Ur Squamous Epith Cells (None-Few) per lpf Urine Bacteria (None-Few) per hpf Hyaline Casts (None-Few) per lpf Ur Culture Indicated? (NO) Urine Opiates Screen (Rtknyh=580) ng/mL Ur Barbiturates Screen (Rbhxai=649) ng/mL Ur Phencyclidine Scrn (Cutoff=25) ng/mL Ur Amphetamines Screen (Evabdv=0561) ng/mL U Benzodiazepines Scrn (Ywatvj=403) ng/mL Urine Cocaine Screen (Cutoff= 300) ng/mL U Marijuana (THC) Screen (Cutoff = 50) ng/mL Ur Drug Screen Interp Ethyl Alcohol (Less than 10) mg/dL Person Notif of Elina Knutson Primitivo 05/23/18 Range/Units 16:06 PT (9.4-12.1) Seconds INR APTT (26.0-36.0) Seconds VBG pH (7.32-7.42) pH Units VBG pCO2 (41-51) mmHg VBG pO2 (25-50) mmHg VBG HCO3 Carboxyhemoglobin (0-5) % Sodium (136-145) mEq/L Potassium (3.5-5.1) mEq/L Chloride (98-107) mEq/L Carbon Dioxide (23-29) mEq/L BUN (6-20) mg/dL Creatinine (0.60-1.20) mg/dL Est GFR ( Amer) (> 60) Est GFR (Non-Af Amer) (> 60) BUN/Creatinine Ratio (6-26) Glucose (70-105) mg/dL Calculated Osmolality (280-300) Lactic Acid 2.2 (0.5-2.2) mmol/L Calcium (8.6-10.3) mg/dL Total Bilirubin (0.3-1.0) mg/dL Direct Bilirubin (0.0-0.2) mg/dL Indirect Bilirubin (0.0-1.2) mg/dL AST (13-39) Units/L ALT (7-52) Units/L Alkaline Phosphatase (34-104) Units/L Ammonia (16-53) mcmol/L Creatine Kinase (30-223) Units/L Troponin I (< 0.04) ng/mL Serum Total Protein (6.4-8.9) g/dL Albumin (3.5-5.7) g/dL Globulin (2.4-3.5) g/dL Albumin/Globulin Ratio (1.1-2.2) Beta-Hydroxybutyric Acd (0.02-0.27) mmol/L TSH (0.340-5.600) mcIU/mL Serum , Qual (Negative) Ur Specimen Adequacy Urine Color (Yellow) Urine Clarity (Clear) Urine pH (5.0-8.0) pH Units Ur Specific [place] (1.010-1.025) Urine Protein (Neg-Trace) mg/dL Urine Glucose (UA) (Normal) mg/dL Urine Ketones (Negative) mg/dL Urine Blood (Negative) Urine Nitrite (Negative) Urine Bilirubin (Negative) Urine Urobilinogen (Normal) mg/dL Ur Leukocyte Esterase (Negative) Urine Microscopic RBC (0-3) per hpf Urine Microscopic WBC (0-3) per hpf Ur Squamous Epith Cells (None-Few) per lpf Urine Bacteria (None-Few) per hpf Hyaline Casts (None-Few) per lpf Ur Culture Indicated? (NO) Urine Opiates Screen (Srrblt=297) ng/mL Ur Barbiturates Screen (Skjckb=577) ng/mL Ur Phencyclidine Scrn (Cutoff=25) ng/mL Ur Amphetamines Screen (Udjotz=1908) ng/mL U Benzodiazepines Scrn (Aqvyza=426) ng/mL Urine Cocaine Screen (Cutoff= 300) ng/mL U Marijuana (THC) Screen (Cutoff = 50) ng/mL Ur Drug Screen Interp Ethyl Alcohol (Less than 10) mg/dL Person Notif of Crit Attestation Statement - Attestation Attestation: I, Leandro Tan DO, examined this patient [id number] and my medical decision-making was reviewed with Kalani Salcido DO , Resident Physician. I agree with the documented findings, disposition and treatment plan as described except to the extent set forth below. Please see my progress notes for details. 32-year-old female presents by EMS confused and altered and not following commands. Patient is a known substance abuse history along with diabetes. Patient's glucose is greater than 400 and transport. IV access was unable to be obtained. Patient has no visible signs of purpose bowel movement and she is just moving around moaning in discomfort. On presentation her vital signs did show hypertension but stable heart rate. Her mucous membranes were cracked and dry. Patient is not following commands her waking up appropriately. Her pupils are reactive no signs of pinpoint presentation. She has no stridor no trismus. Lungs are clear. Respirations are increased. Heart is regular with no mu rmurs. Abdomen is soft no guarding no rigidity. Extremities appear to be normal with multiple areas of bleeding and skin wound secondary to IV substance abuse and injection. Patient was CT imaging the head chest x-ray completed along with screening labs including CBC chemistry troponin and lactic acid VBG liver function testing ammonia carboxyhemoglobin as well as serum ketones. Urinalysis and urine test will also be collected. Fluids will be started and IV access will be obtained. Patient is concerning for clinical presentation decompensation secondary to substance abuse, altered mentation and concern for diabetic ketoacidosis. Disposition will most likely be to the ICU for symptomatic control management. Patient is clinically concerning for decompensation is significantly critically ill. See detailed documentation the physical exam, medical intervention, medical decision-making and disposition in the resident physician's note. 70 minutes of critical care provider the patient's treatment course at this time. 1600 IV access was difficult to obtain a continued low. Fluids were difficult to provide. I will access was placed to start symptomatic treatment and then central line axis was going to be obtained. Patient's initial labs were only able to be collected and the patient had an elevated serum ketones as well as a pneumonia 227. Patient also had an elevated troponin. Aspirin, rectal lactulose and fluids were ordered. Concern for diabetic ketoacidosis systolic table. EKG was not brought to my bedside for evaluation until the patient was being admitted. Patient did not have any signs of cardiac arrhythmia on the monitor. Initial gas was 6.88 pH. Bicarbonate drip as well as a single bolus of bicarbonate was given. Patient was discussed with the on-call intensive care unit physician Dr. Guallpa. He accepted the patient to the ICU. CT imaging the head is unremarkable chest x-ray stable. Antibiotic regimen will not be started this time considering the patient has what appears to be profound diabetic ketoacidosis 3 L of fluid as well as insulin drip were started. Patient also had a potassium 8.3 and EKG did show hyperacute T waves with no widening of the QRS complex at this time. There is no visible signs of arrhythmia. Patient had calcium and Kayexalate added on. Patient was responsive to fluid with a blood pressure of 97/53 at the time of leaving the emergency room department to the intensive care unit. Appropriate interosseous as well as central venous access has been established. Fluids and emergent medications have been in [place] the patient is otherwise stabilizing. Mental status is still altered. This could be secondary to the hepatic encephalopathy versus profound diabetic ketoacidosis and acidemia. Patient will be admitted for continuation of care. Family was informed that she is critical. And has considerable potential for decompensation and . They are aware of this at the time of admission. Patient will be admitted at this time.
[2018-05-23 17:14] LABS: ABG PCO2 < 13 mmHg (35-45); ABG PH 7.13 pH Units (7.32-7.45); ABG PO2 140 mmHg (85-104)
--- NOTE | 2018-05-23 17:21 | Pulmonology History & Physical ---
<Nelly Shultz S - Last Filed: 05/23/18 20:50> Date of Encounter: 05/23/18 History of Present Illness HPI: Ms. Booker is a 32 year old female Medications and Allergies Etonogestrel [Nexplanon] 68 mg SQ AD 11/24/17 [History] Insulin Glargine [Lantus] 45 unit SQ DAILY 05/23/18 [History] Insulin LISPRO [HumaLOG] 0 unit SQ DAILY 05/23/18 [History] Lisinopril [Zestril] 5 mg PO DAILY 05/23/18 [History] Sertraline [Zoloft] 50 mg PO DAILY 05/23/18 [History] Allergy/AdvReac Type Severity Reaction Status Date / Time No Known Allergies Allergy Verified 05/23/18 19:36 All Systems: The remainder of the systems were reviewed and are negative Physical Examination Vital Signs: Vital Signs, Last 4 Hours Temp Pulse Resp BP Pulse Ox 05/23/18 20:00 98.7 F 117 22 100/57 100 05/23/18 19:00 112 26 112/63 100 05/23/18 18:00 97.5 F L 113 28 112/63 100 05/23/18 17:57 94 F L 104 28 102/63 100 05/23/18 16:57 92.0 F L 100 30 90/56 100 Results - Laboratory Findings CBC and BMP: 05/23/18 19:00 05/23/18 19:00 ABG ABG pH 7.09 pH Units (7.32-7.45) L* 05/23/18 19:54 ABG pCO2 < 13 mmHg (35-45) L* 05/23/18 19:54 ABG pO2 129 mmHg (85-104) H 05/23/18 19:54 ABG O2 Saturation TNP 05/23/18 19:54 PT/INR, D-dimer PT 15.7 Seconds (9.4-12.1) H 05/23/18 16:06 Abnormal lab findings: Abnormal lab results WBC 36.2 K/mcL (4.3-11.1) H* 05/23/18 19:00 Hgb 11.1 g/dL (11.5-15.4) L 05/23/18 19:00 Hct 33.6 % (35.3-44.9) L 05/23/18 19:00 MPV 9.3 fL (9.4-12.4) L 05/23/18 19:00 Neutrophils # 36.6 K/mcL (1.6-8.9) H 05/23/18 16:06 Lymphocytes # 5.8 K/mcL (0.6-4.6) H 05/23/18 16:06 Monocytes # 2.0 K/mcL (0.0-1.3) H 05/23/18 16:06 Reactive Lymphocytes Present (Not Present) A 05/23/18 16:06 Toxic Granulation Present (Not Present) A 05/23/18 16:06 PT 15.7 Seconds (9.4-12.1) H 05/23/18 16:06 APTT 40.8 Seconds (26.0-36.0) H 05/23/18 16:06 ABG pH 7.09 pH Units (7.32-7.45) L* 05/23/18 19:54 ABG pCO2 < 13 mmHg (35-45) L* 05/23/18 19:54 ABG pO2 129 mmHg (85-104) H 05/23/18 19:54 VBG pH 6.89 pH Units (7.32-7.42) L* 05/23/18 15:25 VBG pCO2 < 13 mmHg (41-51) L 05/23/18 15:25 VBG pO2 159 mmHg (25-50) H 05/23/18 15:25 Carboxyhemoglobin 7.1 % (0-5) H 05/23/18 15:07 Carbon Dioxide 4 mEq/L (23-29) L* 05/23/18 19:00 BUN 43 mg/dL (6-20) H 05/23/18 19:00 Creatinine 1.87 mg/dL (0.60-1.20) H 05/23/18 19:00 Est GFR ( Amer) 37 (> 60) L 05/23/18 19:00 Est GFR (Non-Af Amer) 31 (> 60) L 05/23/18 19:00 Glucose 900 mg/dL (70-105) H* 05/23/18 19:00 Calculated Osmolality 337 (280-300) H 05/23/18 19:00 Calcium 8.2 mg/dL (8.6-10.3) L 05/23/18 19:00 Ammonia 227 mcmol/L (16-53) H 05/23/18 15:07 Creatine Kinase 292 Units/L (30-223) H 05/23/18 15:07 Troponin I 1.02 ng/mL (< 0.04) H* 05/23/18 15:07 Serum Total Protein 6.1 g/dL (6.4-8.9) L 05/23/18 15:07 Beta-Hydroxybutyric Acd > 2.00 mmol/L (0.02-0.27) H 05/23/18 15:07 Ur Specimen Adequacy See below A 05/23/18 13:53 Ur Specific Mclean 1.027 (1.010-1.025) H 05/23/18 13:53 Urine Protein 30 mg/dL (Neg-Trace) H 05/23/18 13:53 Urine Glucose (UA) >=1000 mg/dL (Normal) H 05/23/18 13:53 Urine Ketones 40 mg/dL (Negative) H 05/23/18 13:53 Urine Blood Moderate (Negative) H 05/23/18 13:53 Ur Squamous Epith Cells Moderate per lpf (None-Few) H 05/23/18 13:53 Urine Cocaine Screen Positive ng/mL (Cutoff= 300) H 05/23/18 13:53 - Attending Attestation I saw and evaluated this patient and my medical decision-making was reviewed with the Resident Physician. I agree with the documented findings, disposition and treatment plan as described except to the extent set forth below. We independently had [id number] contact with the patient I spent 45 minutes of of Critical Care time with this patient. It involved decision making of high complexity to assess, manipulate, and support vital organ system failure and/or to prevent further life threatening deterioration of the patient's condition. The time involved in the performance of separately reportable procedures was not counted toward critical care time. Patient seen and examined at bedside Labs, radiology, chart personally reviewed. Management was reviewed during multidisciplinary critical care rounds. POWERTRAIN ENGINEER: Patient with altered mental status with opioid intoxication CT head did not show any acute abnormalities patient is is wanting to verbal commands no focal neurological deficit most likely due to secondary to toxic/metabolic encephalopathy secondary to hyperosmolar state due to diabetic ketoacidosis. Pulm: Patient has acceptable oxygenation patient is trying to compensate for her profound metabolic acidosis due to diabetic ketoacidosis. To get CT of blood gas analysis. Cards: Patient presented with diabetic ketoacidosis with volume depletion and shock will tend to correct with volume depletion patient developed N STEMI most likely due to type II IL and do not suspect any obstructive coronary artery disease. No need of heparin drip. FEN-GI: Nothing by mouth. Patient has diabetic ketoacidosis with high anion gap metabolic acidosis. Renal: Acute kidney injury secondary to volume depletion due to diabetic ketoacidosis complicated by MIXED high anion gap AND non-anion gap metabolic acidosis. Since patient pH is very low will continue bicarbonate drip for now. Expected to improve with diabetic ketoacidosis management. ID: No evidence of urinary tract infection no evidence of pneumonia since patient has opioid intoxication will do blood cultures. Heme/Onc: Labs reviewed thrombo-prophylaxis with heparin. Endo: Glucose Monitored Integ/MSK: Skin Care per routine ICU Nursing Protocol to prevent ulcers. Lines: All lines examined without evidence of infection : Dispo: Critically ill CODE: Full code <Bria Martin - Last Filed: 05/23/18 21:31> Date of Encounter: 05/23/18 Time of Encounter: 17:21 Assessment and Plan (1) Diabetic ketoacidosis Current visit: Yes Status: Acute Initial VBG shows pH of 6.89 with bicarbonate of less than 4 Patient's anion gap is at least 26 Beta hydroxybutyrate is greater than 2 Leukocytosis of 45.9 with initial glucose of 1275 Patient received 2 L fluid bolus in the emergency department and started on bicarbonate drip DKA protocol orders, will discontinue bicarbonate drip once the pH is greater th an 7.25, Electrolyte repletion as necessary Calcium and insulin started in emergency transportation department supervisor CT negative for acute changes Likely encephalopathic from ketosis Precedex for sedation and axiolysis Qualifiers: Diabetes mellitus type: type 1 Diabetes mellitus complication detail: with coma Qualified Code(s): E10.11 - Type 1 diabetes mellitus with ketoacidosis with coma (2) Opiate withdrawal Current visit: Yes Status: Acute * Per history * Tox screen positive for cocaine * 100 for sides of withdrawal (3) Acute hepatic encephalopathy Current visit: Yes Status: Acute (4) Elevated troponin Current visit: Yes Status: Acute Troponin elevated at 1.02 Likely demand ischemia in the setting of severe acidosis Will trend (5) Elevated CK Current visit: Yes Status: Acute Patient was found down Creatine Kinase 292 Will continue with IV hydration (6) Acute kidney injury Current visit: Yes Status: Acute Likely secondary to severe metabolic acidosis Will monitor with BMP q 4 h History of Present Illness HPI: Ms. Booker is a 32 year old female who presented to the emergency department confused and altered. History is limited given the patient's altered mental status. She does have a long history of substance abuse along with diabetes. She was encephalopathic and initial concern was for diabetic ketoacidosis. CT head showed no acute abdomen at least. Chest x-ray showed no significant areas of focal consolidation. The patient was found to be profoundly acidotic with hyperkalemia and an EKG showing hyperacute T waves. The patient was initiated on sodium bicarbonate drip. The patient was hypotensive and central venous access was established. She did have elevated show an and her troponin but no evidence of acute ischemia. Past Med Surg Social Fam HX - Past Medical History Medical history: diabetes, other Additional medical history: depression, insomnia, tendonitis. hx IV drug use Psychiatric history: anxiety, depression, prior suicide attempt - Past Surgical History Surgical History: , other Additional surgical history: Right pinky - Social History Smoking Status: Never smoker Smokeless Tobacco Status: No Alcohol use: none Drug use: none ROS unobtainable: due to mental status All Systems: The remainder of the systems were reviewed and are negative Physical Examination Vital Signs: Vital Signs, Last 4 Hours Temp Pulse Resp BP Pulse Ox 05/23/18 16:57 92.0 F L 97 30 90/56 100 05/23/18 16:33 94 27 96/58 100 05/23/18 16:06 91 29 87/67 100 05/23/18 15:31 76/66 05/23/18 15:25 89.9 F L 85 16 101/84 99 05/23/18 15:10 81 28 78/57 100 05/23/18 13:58 90 05/23/18 13:35 89.9 F L 83 23 85/48 100 General appearance: no acute distress, lethargic Eyes: nonicteric ENT: oropharynx dry Effort: other (tachypnic) Auscultation: bilateral: clear Cardiovascular: other (tachycardic, regular rhythm) Gastrointestinal: normoactive bowel sounds Integumentary: normal Extremities: no cyanosis Musculoskeletal: no deformities unable to assess due to mental status Results - Laboratory Findings CBC and BMP: 05/23/18 19:00 05/23/18 19:00 ABG ABG pH 7.13 pH Units (7.32-7.45) L* 05/23/18 17:10 ABG pCO2 < 13 mmHg (35-45) L* 05/23/18 17:10 ABG pO2 140 mmHg (85-104) H 05/23/18 17:10 ABG O2 Saturation TNP 05/23/18 17:10 PT/INR, D-dimer PT 15.7 Seconds (9.4-12.1) H 05/23/18 16:06 Abnormal lab findings: Abnormal lab results WBC 45.9 K/mcL (4.3-11.1) H* 05/23/18 16:06 MCHC 29.8 g/dL (31.6-35.5) L 05/23/18 16:06 RDW 14.7 % (11.5-14.5) H 05/23/18 16:06 Plt Count 558 K/mcL (140-400) H 05/23/18 16:06 PT 15.7 Seconds (9.4-12.1) H 05/23/18 16:06 APTT 40.8 Seconds (26.0-36.0) H 05/23/18 16:06 ABG pH 7.13 pH Units (7.32-7.45) L* 05/23/18 17:10 ABG pCO2 < 13 mmHg (35-45) L* 05/23/18 17:10 ABG pO2 140 mmHg (85-104) H 05/23/18 17:10 VBG pH 6.89 pH Units (7.32-7.42) L* 05/23/18 15:25 VBG pCO2 < 13 mmHg (41-51) L 05/23/18 15:25 VBG pO2 159 mmHg (25-50) H 05/23/18 15:25 Carboxyhemoglobin 7.1 % (0-5) H 05/23/18 15:07 Sodium 120 mEq/L (136-145) L* 05/23/18 15:07 Potassium 8.3 mEq/L (3.5-5.1) H* 05/23/18 15:07 Chloride 91 mEq/L (98-107) L 05/23/18 15:07 Carbon Dioxide < 4 mEq/L (23-29) L* 05/23/18 15:07 BUN 41 mg/dL (6-20) H 05/23/18 15:07 Creatinine 1.98 mg/dL (0.60-1.20) H 05/23/18 15:07 Est GFR ( Amer) 35 (> 60) L 05/23/18 15:07 Est GFR (Non-Af Amer) 29 (> 60) L 05/23/18 15:07 Glucose 1275 mg/dL (70-105) H* 05/23/18 15:07 Calculated Osmolality 325 (280-300) H 05/23/18 15:07 Calcium 7.0 mg/dL (8.6-10.3) L 05/23/18 15:07 Ammonia 227 mcmol/L (16-53) H 05/23/18 15:07 Creatine Kinase 292 Units/L (30-223) H 05/23/18 15:07 Troponin I 1.02 ng/mL (< 0.04) H* 05/23/18 15:07 Serum Total Protein 6.1 g/dL (6.4-8.9) L 05/23/18 15:07 Beta-Hydroxybutyric Acd > 2.00 mmol/L (0.02-0.27) H 05/23/18 15:07 Ur Specimen Adequacy See below A 05/23/18 13:53 Ur Specific Mclean 1.027 (1.010-1.025) H 05/23/18 13:53 Urine Protein 30 mg/dL (Neg-Trace) H 05/23/18 13:53 Urine Glucose (UA) >=1000 mg/dL (Normal) H 05/23/18 13:53 Urine Ketones 40 mg/dL (Negative) H 05/23/18 13:53 Urine Blood Moderate (Negative) H 05/23/18 13:53 Ur Squamous Epith Cells Moderate per lpf (None-Few) H 05/23/18 13:53 Urine Cocaine Screen Positive ng/mL (Cutoff= 300) H 05/23/18 13:53
[2018-05-23] MEDS: Insulin Human Regular 100 UNIT in 0.9 % Sodium Chloride 100 ML IVC SCH (17:25)
[2018-05-23 17:28] LABS: Reactive Lymphocytes Present (Not Present); Toxic Granulation Present (Not Present)
[2018-05-23] MEDS ORDERED: 0.9 % Sodium Chloride 1,000 ML ONE (18:10)
[2018-05-23] MEDS ORDERED: Naloxone 0.4 MG/ML INJ IVP PRN (18:18)
[2018-05-23] MEDS ORDERED: D5% in 0.45% NACL w KCl 20 MEQ/1,000 ML MLS IVC PRN (19:12)
[2018-05-23] MEDS ORDERED: D5% in 0.45% NACL 1,000 ML IVC PRN (19:12)
[2018-05-23 19:14] LABS: VBG Ionized Calcium 1.15 mmol/L (1.15-1.35)
[2018-05-23] MEDS ORDERED: Potassium Phosphate 44 MEQ in 0.9 % Sodium Chloride 250 ML IVPB PRN (19:14)
[2018-05-23] MEDS ORDERED: MAGNESIUM SULFATE IVPB PRN (19:14)
[2018-05-23] MEDS ORDERED: SODIUM CHLORIDE 0.9% IVPB PRN (19:14)
[2018-05-23] MEDS ORDERED: Dexmedetomidine HCl 400 MCG/100 ML MLS IVC ONE (19:36)
[2018-05-23] MEDS: Dexmedetomidine HCl 400 MCG/100 ML MLS IVC SCH (19:39)
[2018-05-23 19:51] LABS: Calcium 8.2 mg/dL (8.6-10.3); Magnesium 2.5 mg/dL (1.6-2.6); Phosphorous 3.5 mg/dL (2.7-4.5); Potassium 4.2 mEq/L (3.5-5.1)
[2018-05-23 20:00] LABS: ABG PCO2 < 13 mmHg (35-45); ABG PH 7.09 pH Units (7.32-7.45); ABG PO2 129 mmHg (85-104)
[2018-05-23 20:07] LABS: Basophils % 0.3 %; Eosinophils % 0.1 %; Hemoglobin 11.1 g/dL (11.5-15.4); Immature Granulocytes % 2.2 % (0-4); Mean Platelet Volume 9.3 fL (9.4-12.4); Red Cell Distribution Width 14.4 % (11.5-14.5)
[2018-05-23 20:08] LABS: Basophils # 0.1 K/mcL (0.0-0.2); Hematocrit 33.6 % (35.3-44.9); Lymphocytes # 5.3 K/mcL (0.6-4.6); Lymphocytes % 14.6 %; Mean Corpuscular Hemoglobin 28.2 pg (28.0-33.3); Mean Corpuscular Volume 85.5 fL (83.0-100.0); Monocytes % 2.9 %; Neutrophils # 28.9 K/mcL (1.6-8.9); Platelet Count 383 K/mcL (140-400); Red Blood Count 3.93 M/mcL (3.82-4.97); Segmented Neutrophils % 79.9 %
[2018-05-23] MEDS ORDERED: 0.9 % Sodium Chloride w KCl 20 MEQ/1,000 ML MLS IVC ONE (20:20)
[2018-05-23 20:24] LABS: Monocytes # 1.1 K/mcL (0.0-1.3)
[2018-05-23] MEDS: 0.9 % Sodium Chloride w KCl 20 MEQ/1,000 ML MLS IVC SCH (20:33)
[2018-05-23 20:53] LABS: Dohle Bodies Present (Not Present); Reactive Lymphocytes Present (Not Present); Toxic Granulation Present (Not Present)
[2018-05-23 21:50] LABS: Troponin I 0.03 ng/mL (< 0.04)
[2018-05-23] MEDS: Sodium Bicarbonate 150 MEQ in 0.45 % Sodium Chloride 1,000 ML IVC SCH (22:11)
[2018-05-23 23:39] LABS: VBG Ionized Calcium 1.15 mmol/L (1.15-1.35)
[2018-05-23 23:55] LABS: Calcium 7.9 mg/dL (8.6-10.3); Magnesium 2.2 mg/dL (1.6-2.6); Phosphorous 1.3 mg/dL (2.7-4.5); Potassium 4.3 mEq/L (3.5-5.1)
[2018-05-23 23:58] LABS: VBG HCO3 9 mEq/L (21-27); VBG PCO2 24 mmHg (41-51); VBG PO2 90 mmHg (25-50)
[2018-05-24] MEDS ORDERED: Piperacillin/Tazobactam 3.375 GM in 0.9 % Sodium Chloride Mini Bag 100 ML IVPB SCH
[2018-05-24] MEDS: Dexmedetomidine HCl 400 MCG/100 ML MLS IVC SCH ×4 (00:22→18:14)
[2018-05-24] MEDS: 0.9 % Sodium Chloride w KCl 20 MEQ/1,000 ML MLS IVC SCH ×5 (00:33→16:04)
[2018-05-24] MEDS: Sodium Bicarbonate 150 MEQ in 0.45 % Sodium Chloride 1,000 ML IVC SCH (02:59)
[2018-05-24 03:22] LABS: Basophils % 0.1 %; Hematocrit 29.2 % (35.3-44.9); Hemoglobin 10.5 g/dL (11.5-15.4); Immature Granulocytes % 1.9 % (0-4); Lymphocytes # 1.8 K/mcL (0.6-4.6); Lymphocytes % 8.6 %; Mean Corpuscular Hemoglobin 28.8 pg (28.0-33.3); Mean Corpuscular Volume 80.2 fL (83.0-100.0); Mean Platelet Volume 8.7 fL (9.4-12.4); Monocytes # 0.8 K/mcL (0.0-1.3); Neutrophils # 17.6 K/mcL (1.6-8.9); Platelet Count 317 K/mcL (140-400); Red Blood Count 3.64 M/mcL (3.82-4.97); Red Cell Distribution Width 14.2 % (11.5-14.5); Segmented Neutrophils % 85.4 %
[2018-05-24 03:25] LABS: VBG HCO3 14 mEq/L (21-27); VBG PCO2 29 mmHg (41-51); VBG PH 7.29 pH Units (7.32-7.42); VBG PO2 78 mmHg (25-50)
[2018-05-24 03:47] LABS: BUN/Creatinine Ratio 26 (6-26); Blood Urea Nitrogen 31 mg/dL (6-20); Calcium 7.8 mg/dL (8.6-10.3); Carbon Dioxide 13 mEq/L (23-29); Chloride 121 mEq/L (98-107); Glucose 343 mg/dL (70-105); Osmolality,Calculated 324 (280-300); Phosphorous < 1.0 mg/dL (2.7-4.5); Potassium 4.2 mEq/L (3.5-5.1); Sodium 147 mEq/L (136-145); eGFR For Non-African Americans 52 (> 60)
[2018-05-24 07:29] LABS: VBG HCO3 18 mEq/L (21-27); VBG Ionized Calcium 1.16 mmol/L (1.15-1.35); VBG PCO2 33 mmHg (41-51); VBG PH 7.36 pH Units (7.32-7.42); VBG PO2 103 mmHg (25-50)
[2018-05-24 08:06] LABS: BUN/Creatinine Ratio 27 (6-26); Blood Urea Nitrogen 26 mg/dL (6-20); Calcium 7.8 mg/dL (8.6-10.3); Carbon Dioxide 19 mEq/L (23-29); Chloride 123 mEq/L (98-107); Glucose 205 mg/dL (70-105); Magnesium 1.9 mg/dL (1.6-2.6); Osmolality,Calculated 323 (280-300); Phosphorous 1.3 mg/dL (2.7-4.5); Sodium 151 mEq/L (136-145); eGFR For Non-African Americans > 60 (> 60)
[2018-05-24] MEDS: Insulin Human Regular 100 UNIT in 0.9 % Sodium Chloride 100 ML IVC SCH (10:30)
[2018-05-24] MEDS ORDERED: D5% in Water 1,000 ML IVC PRN (11:18)
[2018-05-24] MEDS ORDERED: *HR* Dextrose 50 % in Water (Syg) 50 ML SYRINGE IVP PRN ×2 (11:18→16:53)
[2018-05-24] MEDS ORDERED: Dextrose Gel 15 GM/37.5 ML TUBE PO PRN ×4 (11:18→16:53)
[2018-05-24] MEDS ORDERED: Insulin DETEMIR 100 UNIT/ML X5UNITS SQ SCH (11:30)
[2018-05-24] MEDS: Insulin LISPRO 300 UNITS/3 ML VIAL SQ SCH ×3 (12:26→21:27)
--- NOTE | 2018-05-24 12:34 | Pulmonology Progress Note ---
Date of Encounter: 05/24/18 Time of Encounter: 12:34 Assessment and Plan (1) Diabetic ketoacidosis Current Visit: Yes Status: Acute Patient seen and examined at bedside Labs, radiology, chart personally reviewed. Management was reviewed during multidisciplinary critical care rounds. Below Reflects my systems based assessment and plan BUSINESS ANALYST: Metabolic encephalopathy secondary to DKA and suspected to control from polysubstance abuse. Head CT without acute process generally per nursing staff mental status is improving from yesterday but she still is not back to baseline Pulm: Acceptable oxygenation on room air Cards: Positive elevation in the context of severe metabolic acidosis from DKA which is normalized GI: Nothing by mouth for now because of altered mental status continue to follow this closely; she is complaining of nausea and we have given antiemetic; liver enzymes followed and stable pneumonia noted to be elevated Renal: UOP Monitored, Cont to Trend sCr and monitor Electrolytes. ID: White count is quite elevated on admission and fortunately is trending down I suspect this is a large part mediated by DKA and stress response however patient does have multiple skin lesions which may be infected and she is at risk of MRSA and will cover empirically with vancomycin this can likely be stopped next 24-48 hours if cultures remain negative Heme/Onc: DVT prophylaxis given Endo: Patient has DKA and this is resolved plan to transition to basal bolus dosing insulin every 4 hours while nothing by mouth Integ/MSK: Skin Care per routine ICU Nursing Protocol to prevent ulcers. Lines: All lines examined without evidence of infection : Dispo: Stable for transfer to [facility] for ongoing care CODE: Full mother updated at bedside Qualifiers: Diabetes mellitus type: type 1 Diabetes mellitus complication detail: with coma Qualified Code(s): E10.11 - Type 1 diabetes mellitus with ketoacidosis with coma (2) Metabolic encephalopathy Current Visit: Yes Status: Acute (3) Opiate withdrawal Current Visit: Yes Status: Acute Subjective Principal diagnosis: DKA Interval history: Senait has improving mental status was so remains altered with metabolic encephalopathy and suspected drug withdrawal. Gap is closed and she is being transitioned from IV to subcutaneous insulin Objective PUL Vital signs: Last Vital Signs Temp 99.0 F 05/24/18 11:20 Pulse 94 05/24/18 11:00 Resp 87 05/24/18 09:00 BP 104/50 05/24/18 09:00 Pulse Ox 98 05/24/18 09:00 General appearance: appears uncomfortable ENT: oropharynx dry Neck: supple Effort: normal Auscultation: bilateral: clear Cardiovascular: regular rate and rhythm Gastrointestinal: normoactive bowel sounds, soft, non-tender Integumentary: other (She does have scattered areas of lesions which appear indurated likely secondary to IV track bartlett there is no expressible fluid collections/pus from these areas but they are mildly erythematous) Extremities: no cyanosis, pink and warm, pulses normal Musculoskeletal: no deformities non-focal exam, pupils equal and round, other (She is noted to respond her mo ther's voice and follow her mother's commands she does not consistently follow commands for staff however she does move all extremities spontaneously without clear evidence of deficit) anxious Results - Laboratory Findings CBC and BMP: 05/24/18 03:06 05/24/18 07:04 ABG ABG pH 7.09 pH Units (7.32-7.45) L* 05/23/18 19:54 ABG pCO2 < 13 mmHg (35-45) L* 05/23/18 19:54 ABG pO2 129 mmHg (85-104) H 05/23/18 19:54 ABG O2 Saturation TNP 05/23/18 19:54 PT/INR, D-dimer PT 15.7 Seconds (9.4-12.1) H 05/23/18 16:06 Abnormal lab findings: Abnormal lab results WBC 20.6 K/mcL (4.3-11.1) H 05/24/18 03:06 RBC 3.64 M/mcL (3.82-4.97) L 05/24/18 03:06 Hgb 10.5 g/dL (11.5-15.4) L 05/24/18 03:06 Hct 29.2 % (35.3-44.9) L 05/24/18 03:06 MCV 80.2 fL (83.0-100.0) L 05/24/18 03:06 MCHC 36.0 g/dL (31.6-35.5) H 05/24/18 03:06 MPV 8.7 fL (9.4-12.4) L 05/24/18 03:06 Neutrophils # 17.6 K/mcL (1.6-8.9) H 05/24/18 03:06 Reactive Lymphocytes Present (Not Present) A 05/23/18 19:00 Toxic Granulation Present (Not Present) A 05/23/18 19:00 Dohle Bodies Present (Not Present) A 05/23/18 19:00 PT 15.7 Seconds (9.4-12.1) H 05/23/18 16:06 APTT 40.8 Seconds (26.0-36.0) H 05/23/18 16:06 ABG pH 7.09 pH Units (7.32-7.45) L* 05/23/18 19:54 ABG pCO2 < 13 mmHg (35-45) L* 05/23/18 19:54 ABG pO2 129 mmHg (85-104) H 05/23/18 19:54 VBG pCO2 33 mmHg (41-51) L 05/24/18 07:27 VBG pO2 103 mmHg (25-50) H 05/24/18 07:27 VBG HCO3 18 mEq/L (21-27) L 05/24/18 07:27 Carboxyhemoglobin 7.1 % (0-5) H 05/23/18 15:07 Sodium 151 mEq/L (136-145) H 05/24/18 07:04 Chloride 123 mEq/L (98-107) H 05/24/18 07:04 Carbon Dioxide 19 mEq/L (23-29) L 05/24/18 07:04 BUN 26 mg/dL (6-20) H 05/24/18 07:04 BUN/Creatinine Ratio 27 (6-26) H 05/24/18 07:04 Glucose 205 mg/dL (70-105) H 05/24/18 07:04 POC Glucose 253 mg/dL (70-99) H 05/24/18 05:08 Calculated Osmolality 323 (280-300) H 05/24/18 07:04 Calcium 7.8 mg/dL (8.6-10.3) L 05/24/18 07:04 Phosphorus 1.3 mg/dL (2.7-4.5) L 05/24/18 07:04 Ammonia 227 mcmol/L (16-53) H 05/23/18 15:07 Creatine Kinase 292 Units/L (30-223) H 05/23/18 15:07 Serum Total Protein 6.1 g/dL (6.4-8.9) L 05/23/18 15:07 Beta-Hydroxybutyric Acd > 2.00 mmol/L (0.02-0.27) H 05/23/18 15:07 Ur Specimen Adequacy See below A 05/23/18 13:53 Ur Specific Gr[place] 1.027 (1.010-1.025) H 05/23/18 13:53 Urine Protein 30 mg/dL (Neg-Trace) H 05/23/18 13:53 Urine Glucose (UA) >=1000 mg/dL (Normal) H 05/23/18 13:53 Urine Ketones 40 mg/dL (Negative) H 05/23/18 13:53 Urine Blood Moderate (Negative) H 05/23/18 13:53 Ur Squamous Epith Cells Moderate per lpf (None-Few) H 05/23/18 13:53 Urine Cocaine Screen Positive ng/mL (Cutoff= 300) H 05/23/18 13:53 - Microbiology Findings Microbiology Findings: Microbiology, Last 48 Hours 05/23/18 17:00 Blood Culture - Preliminary Peripheral Venipuncture Culture is incubating and being continuously monitored for growth. Final report to follow. 05/23/18 17:00 Blood Culture - Preliminary Peripheral Venipuncture Culture is incubating and being continuously monitored for growth. Final report to follow. - Clinical Findings Intake & Output: Intake & Output 05/23/18 05/24/18 05/24/18 23:59 07:59 15:59 Intake Total 5287.4 / 5287.4 2602 / 2602 1033.6 / 1033.6 Output Total 1950 / 1949 Balance 3337.4 / 3337.4 552 / 552 1033.6 / 1033.6 Weight 74 kg 73.8 kg Consult Discharge Plan - Plan Referrals: Lynda Hirsch, LOG SORTER [Primary Care Provider] -
[2018-05-24 13:34] LABS: Albumin 3.1 g/dL (3.5-5.7); Albumin/Globulin Ratio 1.6 (1.1-2.2); Bilirubin,Direct 0.1 mg/dL (0.0-0.2); Bilirubin,Indirect 0.3 mg/dL (0.0-1.2); Bilirubin,Total 0.4 mg/dL (0.3-1.0); Total Protein 5.1 g/dL (6.4-8.9)
[2018-05-24] MEDS ORDERED: Ondansetron 4 MG/2 ML VIAL IVP PRN (13:58)
[2018-05-24] MEDS ORDERED: Ondansetron 4 MG/2 ML VIAL ONE (14:02)
[2018-05-24] MEDS ORDERED: cloNIDine HCl 0.1 MG TABLET PO SCH (15:00)
[2018-05-24] MEDS ORDERED: Naloxone 0.4 MG/ML INJ IVP PRN (16:53)
[2018-05-24] MEDS ORDERED: D5% in 0.45% NACL 1,000 ML IVC PRN (16:53)
[2018-05-24] MEDS: cloNIDine HCl 0.1 MG TABLET PO SCH (21:28)
[2018-05-25] MEDS: Insulin LISPRO 300 UNITS/3 ML VIAL SQ SCH ×6 (00:23→20:06)
[2018-05-25] MEDS: Dexmedetomidine HCl 400 MCG/100 ML MLS IVC SCH (02:00)
[2018-05-25 05:32] LABS: Acinetobacter baumannii by PCR Not Detected (Not Detect); Candida albicans by PCR Not Detected (Not Detect); Candida glabrata by PCR Not Detected (Not Detect); Candida krusei by PCR Not Detected (Not Detect); Candida parapsilosis by PCR Not Detected (Not Detect); Candida tropicalis by PCR Not Detected (Not Detect); Enterobacter cloacae Cmplx PCR Not Detected (Not Detect); Enterobacteriaceae by PCR Not Detected (Not Detect); Enterococcus by PCR Not Detected (Not Detect); Escherichia coli by PCR Not Detected (Not Detect); Klebsiella oxytoca by PCR Not Detected (Not Detect); Klebsiella pneumoniae by PCR Not Detected (Not Detect); Proteus by PCR Not Detected (Not Detect); Pseudomonas aeruginosa by PCR Not Detected (Not Detect); Serratia marcescens by PCR Not Detected (Not Detect); Staphylococcus aureus by PCR Not Detected (Not Detect); Staphylococcus by PCR Not Detected (Not Detect); Streptococcus agalactiae(B)PCR Not Detected (Not Detect); Streptococcus by PCR Not Detected (Not Detect); Streptococcus pneumoniae PCR Not Detected (Not Detect); Streptococcus pyogenes (A) PCR Not Detected (Not Detect); blaKPC Carbapenem-Resist Gene Not Detected (Not Detect); vanA/B Vancomycin-Resist Genes Not Detected (Not Detect)
[2018-05-25] MEDS ORDERED: Insulin DETEMIR 100 UNIT/ML X5UNITS SQ SCH (09:00)
[2018-05-25 09:03] LABS: Basophils % 0.2 %; Eosinophils % 0.2 %; Hematocrit 29.8 % (35.3-44.9); Hemoglobin 10.5 g/dL (11.5-15.4); Immature Granulocytes % 0.3 % (0-4); Lymphocytes # 2.8 K/mcL (0.6-4.6); Lymphocytes % 25.4 %; Mean Corpuscular HGB Conc 35.2 g/dL (31.6-35.5); Mean Corpuscular Hemoglobin 28.7 pg (28.0-33.3); Mean Corpuscular Volume 81.4 fL (83.0-100.0); Mean Platelet Volume 8.6 fL (9.4-12.4); Monocytes # 0.5 K/mcL (0.0-1.3); Monocytes % 4.7 %; Neutrophils # 7.6 K/mcL (1.6-8.9); Platelet Count 219 K/mcL (140-400); Red Blood Count 3.66 M/mcL (3.82-4.97); Red Cell Distribution Width 14.9 % (11.5-14.5); Segmented Neutrophils % 69.2 %
[2018-05-25 09:23] LABS: BUN/Creatinine Ratio 25 (6-26); Blood Urea Nitrogen 18 mg/dL (6-20); Calcium 8.1 mg/dL (8.6-10.3); Carbon Dioxide 18 mEq/L (23-29); Chloride 113 mEq/L (98-107); Glucose 254 mg/dL (70-105); Magnesium 1.9 mg/dL (1.6-2.6); Osmolality,Calculated 313 (280-300); Phosphorous 1.5 mg/dL (2.7-4.5); Potassium 3.2 mEq/L (3.5-5.1); Sodium 146 mEq/L (136-145); eGFR For Non-African Americans > 60 (> 60)
[2018-05-25] MEDS: cloNIDine HCl 0.1 MG TABLET PO SCH ×3 (09:37→20:05)
[2018-05-25] MEDS: Piperacillin/Tazobactam 3.375 GM in 0.9 % Sodium Chloride Mini Bag 100 ML IVPB SCH ×3 (09:38→23:36)
[2018-05-25] MEDS: Ketorolac 15 MG/ML VIAL IVP PRN ×3 (10:16→21:59)
[2018-05-25] MEDS ORDERED: Potassium Phosphate 44 MEQ in 0.9 % Sodium Chloride 250 ML IVPB ONE (12:11)
--- NOTE | 2018-05-25 12:18 | Internal Med Progress Note ---
Hospitalist Progress Note - Encounter Date of Encounter: 05/25/18 Time of Encounter: 10:55 - Subjective Interval History: Pt was seen with family and RN present at bedside. Pt is sleeping in bed and refusing to wake up or allow my to examine her today. I spent an extensive time with the patient and family, trying to get the patient to cooperate and allow my to examine her. She continued to refuse stating she is tired and wants to sleep As per RN, pt was agitated and hostile towards the nursings staff in the morning. Pt is AAO x 3 and was demanding her pain medications this morning and threatening the staff that she will break everything down in the room if she does not her pain medications stat. Pt was transferred out of the ICU earlier this morning. - Exam Vitals: Temp Pulse Resp BP Pulse Ox 99.2 F 66 24 98/57 96 05/25/18 11:38 05/25/18 11:38 05/25/18 11:38 05/25/18 11:38 05/25/18 11:38 Exam: patient refused physical examination Pt did not appear to be in any distress, she was resting in bed - Summary of Assessment and Plan Summary of Assessment and Plan: Pt is a 32y/o female with PMH of polysubstance abuse, uncontrolled DM who was admitted to the ICU for management of DKA and metabolic encephalopathy. 1. DKA resolved 2. Uncontrolled DM continue basal and sliding scale insulin algorithm monitor FS q4h ADA diet 3. Metabolic encephalopathy secondary to polysubstance abuse pt was started on precedex drip as there was concern for opiate withdrawal will d/c precedex drip at this time will hold all sedative agents at this time 4. Electrolyte abnormalities Hypokalemia: K supplemented Hypophosphatemia: Phos supplemented continue to monitor K and Phos and replace electrolytes as needed 5. Positive blood cultures/Fever one out of two blood culture is positive for gram negative rods f/u repeat blood cultures given low grade fevers overnight, will start IV Zosyn culture report likely contaminant however given fever will treat with broad spectrum IV abx at this time will de-escalate therapy as per clinical improvement DVT ppx: Heparin SQ Care plan discussed with family/RN - Time Spent with Patient Total time spent is greater than 50% in coordination of care (as documented) at patient's floor/unit and/or counseling patient: Internal Medicine: Result - Labs CBC & Chem 7: 05/25/18 08:50 05/25/18 08:50 Labs: Short CBC 05/25/18 Range/Units 08:50 WBC 11.0 (4.3-11.1) K/mcL Hgb 10.5 L (11.5-15.4) g/dL Hct 29.8 L (35.3-44.9) % Plt Count 219 (140-400) K/mcL Neutrophils # 7.6 (1.6-8.9) K/mcL BMP 05/25/18 08:50 Sodium 146 H Potassium 3.2 L Chloride 113 H Carbon Dioxide 18 L BUN 18 Creatinine 0.72 Glucose 254 H Calcium 8.1 L Liver Function 05/24/18 Range/Units 13:16 Total Bilirubin 0.4 (0.3-1.0) mg/dL Direct Bilirubin 0.1 (0.0-0.2) mg/dL AST 25 (13-39) Units/L ALT 14 (7-52) Units/L Alkaline Phosphatase 69 (34-104) Units/L Albumin 3.1 L (3.5-5.7) g/dL - ABG Interpretation ABG results: ABG ABG pH 7.09 pH Units (7.32-7.45) L* 05/23/18 19:54 ABG pCO2 < 13 mmHg (35-45) L* 05/23/18 19:54 ABG pO2 129 mmHg (85-104) H 05/23/18 19:54 ABG O2 Saturation TNP 05/23/18 19:54 PT/INR, D-dimer PT 15.7 Seconds (9.4-12.1) H 05/23/18 16:06 Consult Discharge Plan - Plan Referrals: Lynda Hirsch, CORRESPONDENCE REVIEW CLERK [Primary Care Provider] - 06/02/18 3:00 pm
[2018-05-25] MEDS: hydrOXYzine pamoate 25 MG CAPSULE PO SCH ×2 (14:37→20:04)
[2018-05-25] MEDS ORDERED: Ondansetron 4 MG/2 ML VIAL IVP ONE (15:30)
[2018-05-25] MEDS: *HR* Heparin 5,000 UNIT/ML VIAL SQ SCH (17:44)
[2018-05-25] MEDS: Melatonin 3 MG TABLET PO PRN (19:09)
[2018-05-25] MEDS ORDERED: *HR* Promethazine 25 MG/ML VIAL ONE (20:00)
[2018-05-25] MEDS ORDERED: tiZANidine 4 MG TABLET PO ONE (21:01)
[2018-05-25] MEDS: Ondansetron 4 MG/2 ML VIAL IVP PRN (22:42)
[2018-05-25] MEDS ORDERED: traMADol 50 MG TABLET PO ONE (23:41)
[2018-05-26] MEDS: Insulin LISPRO 300 UNITS/3 ML VIAL SQ SCH ×5 (00:25→22:20)
[2018-05-26] MEDS ORDERED: rOPINIRole 1 MG TABLET PO ONE (01:16)
[2018-05-26] MEDS: *HR* Promethazine 25 MG/ML VIAL IVP PRN ×3 (02:35→19:50)
[2018-05-26] MEDS ORDERED: diazePAM 10 MG/2 ML SYRINGE IVP ONE ×2 (04:14→10:00)
[2018-05-26] MEDS: Ketorolac 15 MG/ML VIAL IVP PRN ×3 (04:44→16:36)
[2018-05-26] MEDS: *HR* Heparin 5,000 UNIT/ML VIAL SQ SCH ×2 (05:08→17:07)
[2018-05-26 05:31] LABS: BUN/Creatinine Ratio 22 (6-26); Blood Urea Nitrogen 14 mg/dL (6-20); Carbon Dioxide 18 mEq/L (23-29); Chloride 108 mEq/L (98-107); Glucose 342 mg/dL (70-105); Magnesium 1.9 mg/dL (1.6-2.6); Osmolality,Calculated 308 (280-300); Phosphorous 2.5 mg/dL (2.7-4.5); Potassium 3.2 mEq/L (3.5-5.1); Sodium 142 mEq/L (136-145); eGFR For Non-African Americans > 60 (> 60)
[2018-05-26 07:05] LABS: Basophils % 0.3 %; Eosinophils % 0.2 %; Hematocrit 28.8 % (35.3-44.9); Hemoglobin 10.1 g/dL (11.5-15.4); Immature Granulocytes % 0.5 % (0-4); Lymphocytes # 2.8 K/mcL (0.6-4.6); Lymphocytes % 28.4 %; Mean Corpuscular HGB Conc 35.1 g/dL (31.6-35.5); Mean Corpuscular Hemoglobin 28.4 pg (28.0-33.3); Mean Corpuscular Volume 80.9 fL (83.0-100.0); Mean Platelet Volume 8.5 fL (9.4-12.4); Monocytes # 0.4 K/mcL (0.0-1.3); Monocytes % 4.2 %; Neutrophils # 6.4 K/mcL (1.6-8.9); Platelet Count 180 K/mcL (140-400); Red Blood Count 3.56 M/mcL (3.82-4.97); Red Cell Distribution Width 14.1 % (11.5-14.5); Segmented Neutrophils % 66.4 %
[2018-05-26] MEDS: cloNIDine HCl 0.1 MG TABLET PO SCH ×2 (08:07→21:44)
[2018-05-26] MEDS: hydrOXYzine pamoate 25 MG CAPSULE PO SCH ×2 (08:09→21:44)
[2018-05-26] MEDS: Piperacillin/Tazobactam 3.375 GM in 0.9 % Sodium Chloride Mini Bag 100 ML IVPB SCH ×2 (08:09→17:07)
[2018-05-26] MEDS: Ondansetron 4 MG/2 ML VIAL IVP PRN ×2 (08:18→17:31)
[2018-05-26] MEDS ORDERED: Insulin DETEMIR 100 UNIT/ML X5UNITS SQ SCH (09:00)
--- NOTE | 2018-05-26 11:40 | Electrocardiograph Report ---
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
[2018-05-26] MEDS ORDERED: diazePAM 5 MG TABLET PO PRN ×2 (13:40→21:11)
--- NOTE | 2018-05-26 15:28 | Infectious Disease Consult ---
Date of Encounter: 05/26/18 Time of Encounter: 15:12 Assessment and Plan (1) Sepsis Status: Acute Assessment and plan: Had 4 sisters criteria plus and organ damage. She currently meets severe sepsis. Etiology not clear could be due to bacteremia with gram-negative rods. Other possibility is skin and soft tissue infection. Qualifiers: Sepsis type: sepsis due to unspecified organism Qualified Code(s): A41.9 - Sepsis, unspecified organism (2) Hyperammonemia Status: Acute Assessment and plan: etiology not clear (3) IVDU (intravenous drug user) Status: Acute Assessment and plan: Patient used the day before coming in. She thought she was using her 1. Urine drug screen was positive for cocaine. (4) Hypothermia Status: Acute Assessment and plan: Etiology not clear. Most likely due to sepsis Patient denies history of thyroid disease. TSH was checked and was negative. Free T4 and total T3 were not checked. Qualifiers: Encounter type: initial encounter Qualified Code(s): T68.XXXA - Hypothermia, initial encounter (5) Gram-negative bacteremia Status: Acute Assessment and plan: 1/2 sets positive for gram-negative rods on 05/23/2018. PCR did not pick and shovel man an organism. Not sure this is a contaminant or true infection. Currently patient was on Zosyn Continue Zosyn for now until the cultures finalize. No endocarditis stigmata Duration of treatment depends on the clinical picture and what the cultures finalize as (6) Acute kidney injury Status: Acute Assessment and plan: Likely prerenal Improved (7) Depression Status: Acute Qualifiers: Depression Type: major depressive disorder Major depression recurrence: recurrent Active/Remission status: currently active Major depression episode severity: moderate Qualified Code(s): F33.1 - Major depressive disorder, recurrent, moderate (8) Lower extremity pain Status: Acute Assessment and plan: Associated with we can bowel sphincter control. Discussed with hospitalist team Physical exam not suggestive of vertebral septic arthritis or discitis. CT lumbar thoracic spine ordered by hospitalist team. Qualifiers: Laterality: bilateral Qualified Code(s): M79.604 - Pain in right leg; M79.605 - Pain in left leg Infectious Disease HPI - Data of Consult Patient: new to practice Consult date: 05/26/18 Requesting Physician: Sofie Ruiz MD Primary Care Provider: Lynda Hirsch CNP - Consult Narrative Reason for consult: bacteremia History of present illness: Ms. Booker is a 32 year old female Patient is a 32-year-old woman who presented to [facility] on 05/23/2018 with altered mental status and was admitted for acute hepatic encephalopathy. We are consulted 05/26/2018 for bacteremia with gram-negative rods. Patient is a 32-year-old woman with past medical history significant for IV drug use heroin, also has depression and history of suicidal ideation, diabetes mellitus, presented to the emergency department with altered mental status and confusion. Per EMS, patient has not used heroin for the last 4 days. Most of the information was taken from medical records. Since admission, patient was initially hypothermic, tachycardic and tachypneic. Presenting labs revealed a WBC of 36.2 with 80% neutrophils no bands. Initial INR was 1.4, bicarbonate 8, BUN 36 creatinine 1.44 glucose 684 and normal lactic acid. Cultures were positive for gram-negative nathan 1 out of 2 sets 05/23/2018. Repeat cultures 05/17/2014 no growth to date. Patient's glucose level was 684, ammonia 227 and CK of 219 2. Protein was only 6.1 and albumin 3.5. TSH was checked was 0.658 and serum was negative. A urinalysis did not show any pyuria or signs of infection. A tox screen was positive for cocaine. When I evaluated the patient, patient was threatening to leave AGAINST MEDICAL ADVICE cause pain is not controlled. Patient's crying saying she is having severe pain in bilateral legs. Physical exam is negative for endocarditis stigmata. I did ask the patient she had any family history of hyperammonemia. Patient is not taking valproic acid or carbamazepine. The only think she is on Zoloft and insulin. Patient has no tenderness over palpation of the thoracic and lumbar spine. Patient though has no control of her bowel movements and she is wearing a diaper. She also has bilateral lower extremity pain. She does have full control of her her urine though. CC: Sofie Ruiz MD Past Med Surg Social Fam HX - Past Medical History Medical history: diabetes, other Additional medical history: depression, insomnia, tendonitis. hx IV drug use Psychiatric history: anxiety, depression, prior suicide attempt - Past Surgical History Surgical History: , other Additional surgical history: Right pinky - Social History Smoking Status: Never smoker Smokeless Tobacco Status: No Alcohol use: none Drug use: none Infectious Disease-CN:Meds Etonogestrel [Nexplanon] 68 mg SQ AD 11/24/17 [History] Insulin Glargine [Lantus] 45 unit SQ DAILY 05/23/18 [History] Insulin LISPRO [HumaLOG] 0 unit SQ DAILY 05/23/18 [History] Lisinopril [Zestril] 5 mg PO DAILY 05/23/18 [History] Sertraline [Zoloft] 50 mg PO DAILY 05/23/18 [History] Allergy/AdvReac Type Severity Reaction Status Date / Time No Known Allergies Allergy Verified 05/23/18 19:36 Review of systems: 10 point review of systems done, negative other for what is mentioned in the history of present illness Exam - Constitutional Vitals: Temp Pulse Resp BP Pulse Ox 99.1 F 69 20 130/80 100 05/26/18 12:08 05/26/18 12:08 05/26/18 12:08 05/26/18 12:08 05/26/18 12:08 Exam: HEAD: Normocephalic atraumatic EYES: PERRLA, EOMI, no conjunctival hemorrhage, sclera anicteric ENT: Mucous membranes moist, no oral thrush NECK: Supple. No meningeal signs. No masses LUNGS: Chest expanding symmetrically. Lungs sounds audible both lung quintero. No wheezing, no rhonchi CV: RRR, S1S2, I did not appreciate any murmur ABDOMEN: Soft, nontender, nondistended. Bowel sounds audible BACK: No CVA tenderness. Normal inspection. No tenderness over the spine EXTREMITY: Adequate perfusion. No joint effusion. SKIN: Normal color. No rash. Has multiple scars upper and lower extremities and scab slightly from previous injection sites. No obvious cellulitis. No endocarditis stigmata. NEURO: Awake alert oriented 3. No obvious focal deficit PSYCH: Calm and appropriate. But very emotional. She was crying and wanted to sign out AMA because she is in so much pain that nobody is addressing her concern.. Infectious Disease CN: Results - Labs CBC & Chem 7: 05/26/18 06:54 05/26/18 04:40 Cultures: Cultures 05/23/18 17:00 Blood Culture - Preliminary Peripheral Venipuncture Gram Negative Nathan 05/25/18 08:50 Blood Culture - Preliminary Peripheral Venipuncture Culture is incubating and being continuously monit ored for growth. Final report to follow. 05/25/18 08:49 Blood Culture - Preliminary Peripheral Venipuncture Culture is incubating and being continuously monitored for growth. Final report to follow. 05/23/18 17:00 Blood Culture - Preliminary Peripheral Venipuncture Culture is incubating and being continuously monitored for growth. Final report to follow. Serology: Serology 05/23/18 05/23/18 Range/Units 17:00 13:53 Ur Specimen Adequacy See below A Urine Color Yellow (Yellow) Urine Clarity Slightly Hazy (Clear) Urine pH 5.0 (5.0-8.0) pH Units Ur Specific [place] 1.027 H (1.010-1.025) Urine Protein 30 H (Neg-Trace) mg/dL Urine Glucose (UA) >=1000 H (Normal) mg/dL Urine Ketones 40 H (Negative) mg/dL Urine Blood Moderate H (Negative) Urine Nitrite Negative (Negative) Urine Bilirubin Negative (Negative) Urine Urobilinogen Normal (Normal) mg/dL Ur Leukocyte Esterase Negative (Negative) Urine Microscopic RBC 0-3 (0-3) per hpf Urine Microscopic WBC 0-3 (0-3) per hpf Ur Squamous Epith Cells Moderate H (None-Few) per lpf Urine Bacteria None Seen (None-Few) per hpf Hyaline Casts None Seen (None-Few) per lpf Ur Culture Indicated? NO (NO) A. baumannii (PCR) Not Detected (Not Detect) Shelby albicans (PCR) Not Detected (Not Detect) C. glabrata (PCR) Not Detected (Not Detect) C. krusei (PCR) Not Detected (Not Detect) C. parapsilosis (PCR) Not Detected (Not Detect) C. tropicalis (PCR) Not Detected (Not Detect) Enterobacteriac sp PCR Not Detected (Not Detect) E. cloacae complex PCR Not Detected (Not Detect) Enterococcus sp PCR Not Detected (Not Detect) E. coli (PCR) Not Detected (Not Detect) H. influenzae (PCR) Not Detected (Not Detect) Klebsiella oxytoca PCR Not Detected (Not Detect) Klebsiella pneumoniae Not Detected (Not Detect) List. monocytogenes PCR Not Detected (Not Detect) N. meningitidis (PCR) Not Detected (Not Detect) Proteus species (PCR) Not Detected (Not Detect) Serratia marcescens PCR Not Detected (Not Detect) Staphylococcus sp PCR Not Detected (Not Detect) Staph aureus (PCR) Not Detected (Not Detect) mecA-Methicil Res Gene Not Detected (Not Detect) Streptococcus sp PCR Not Detected (Not Detect) Group A Strep DNA Not Detected (Not Detect) Group B Strep (PCR) Not Detected (Not Detect) Strep pneumoniae (PCR) Not Detected (Not Detect) P. aeruginosa (PCR) Not Detected (Not Detect) Fernando/B-Vanco Res Genes Not Detected (Not Detect) KPC (blaKPC) Detect PCR Not Detected (Not Detect) Consult Discharge Plan - Plan Referrals: Lynda Hirsch, QUALITY CONTROL SYSTEMS MANAGER [Primary Care Provider] - 06/02/18 3:00 pm
[2018-05-26] MEDS ORDERED: diazePAM 10 MG/2 ML SYRINGE IVP PRN (16:05)
[2018-05-26] MEDS ORDERED: Isovue-370 500 ML BOTTLE IVP ONE (16:07)
--- NOTE | 2018-05-26 16:13 | Internal Med Progress Note ---
Hospitalist Progress Note - Encounter Date of Encounter: 05/26/18 Time of Encounter: 09:00 - Subjective Interval History: Patient complaining of bilateral leg tingling/pain. She consider "it is from drug withdrawal". Patient denies fever. Patient has positive 1/2 blood culture. ID consult appreciated. - Exam Vitals: Temp Pulse Resp BP Pulse Ox 99.1 F 69 20 130/80 100 05/26/18 12:08 05/26/18 12:08 05/26/18 12:08 05/26/18 12:08 05/26/18 12:08 Exam: Pt is AAO x 3, in NAD HEENT: NC/AT, PERRL Neck: Supple, no JVD, no LAD Lungs: CTA b/l Heart: S1S2, RRR Abd: Soft, nontender, BS present Ext: ROM wnl, no pedal edema Neuro: No focal deficit, move 4 limbs - Assessment and Plan (1) DVT prophylaxis Current Visit: Yes Status: Acute Assessment and Plan: Heparin subcutaneously (2) Diabetic ketoacidosis Current Visit: Yes Status: Acute Assessment and Plan: Resolved after treatment. Patient said she did not take insulin for 3 days before admission. Will continue basal and sliding scale insulin coverage. (3) Gram-negative bacteremia Current Visit: Yes Status: Acute Assessment and Plan: Patient has history of IV drug use. Blood culture positive. Empirically on Zosyn. ID consult appreciated. Blood culture was repeated. Follow final results. (4) Hyperammonemia Current Visit: Yes Status: Acute Assessment and Plan: Etiology is undetermined. Will repeat ammonia level. Patient is mentally clear at this point. (5) IVDU (intravenous drug user) Current Visit: Yes Status: Acute Assessment and Plan: Patient has history of IV drug use. Has positive blood culture. We will continue closely monitor patient. Will check hepatitis and HIV per ID consult. (6) Lower extremity pain Current Visit: Yes Status: Acute Assessment and Plan: Patient has lower extremity pain/tingling bilaterally. Will order spinal CT with contrast to rule out spinal abscess. Patient may also has withdrawal symptoms. Place patient on Valium 2.5 mg IV every 4 hours when necessary. - Time Spent with Patient Total time spent is greater than 50% in coordination of care (as documented) at patient's floor/unit and/or counseling patient: 30 minutes 25 - 35 minutes Plan of Care Discussed with: patient Internal Medicine: Result - Labs CBC & Chem 7: 05/26/18 06:54 05/26/18 04:40 Labs: Short CBC 05/26/18 Range/Units 06:54 WBC 9.7 (4.3-11.1) K/mcL Hgb 10.1 L (11.5-15.4) g/dL Hct 28.8 L (35.3-44.9) % Plt Count 180 (140-400) K/mcL Neutrophils # 6.4 (1.6-8.9) K/mcL BMP 05/26/18 04:40 Sodium 142 Potassium 3.2 L Chloride 108 H Carbon Dioxide 18 L BUN 14 Creatinine 0.63 Glucose 342 H Calcium 8.0 L - ABG Interpretation ABG results: ABG ABG pH 7.09 pH Units (7.32-7.45) L* 05/23/18 19:54 ABG pCO2 < 13 mmHg (35-45) L* 05/23/18 19:54 ABG pO2 129 mmHg (85-104) H 05/23/18 19:54 ABG O2 Saturation TNP 05/23/18 19:54 PT/INR, D-dimer PT 15.7 Seconds (9.4-12.1) H 05/23/18 16:06 Consult Discharge Plan - Plan Referrals: Lynda Hirsch, GEAR ROOM KEEPER [Primary Care Provider] - 06/02/18 3:00 pm (2) Diabetic ketoacidosis Qualifiers: Diabetes mellitus type: type 1 Diabetes mellitus complication detail: with coma Qualified Code(s): E10.11 - Type 1 diabetes mellitus with ketoacidosis with coma (6) Lower extremity pain Qualifiers: Laterality: bilateral Qualified Code(s): M79.604 - Pain in right leg; M79.605 - Pain in left leg
[2018-05-26] MEDS ORDERED: Gabapentin 300 MG CAPSULE PO ONE (17:17)
[2018-05-26 19:03] LABS: Hepatitis B Surface Antigen Nonreactive (Nonreactive)
[2018-05-26 19:31] LABS: HIV-1&2 Antibody & p24 Ag Nonreactive (Nonreactive)
[2018-05-26] MEDS ORDERED: 0.9 % Sodium Chloride 1,000 ML IVC SCH (19:45)
[2018-05-26] MEDS: Melatonin 3 MG TABLET PO PRN (19:50)
[2018-05-26] MEDS: *HR* LORazepam 2 MG/ML VIAL IVP PRN (22:17)
[2018-05-27] MEDS: Piperacillin/Tazobactam 3.375 GM in 0.9 % Sodium Chloride Mini Bag 100 ML IVPB SCH ×4 (00:07→23:08)
[2018-05-27 04:26] LABS: Basophils % 0.4 %; Eosinophils # 0.1 K/mcL (0.0-0.6); Eosinophils % 2.3 %; Hematocrit 28.5 % (35.3-44.9); Hemoglobin 9.6 g/dL (11.5-15.4); Immature Granulocytes % 0.2 % (0-4); Lymphocytes # 2.1 K/mcL (0.6-4.6); Lymphocytes % 40.3 %; Mean Corpuscular HGB Conc 33.7 g/dL (31.6-35.5); Mean Corpuscular Hemoglobin 28.2 pg (28.0-33.3); Mean Corpuscular Volume 83.6 fL (83.0-100.0); Monocytes # 0.3 K/mcL (0.0-1.3); Monocytes % 5.1 %; Neutrophils # 2.7 K/mcL (1.6-8.9); Platelet Count 140 K/mcL (140-400); Red Blood Count 3.41 M/mcL (3.82-4.97); Segmented Neutrophils % 51.7 %
[2018-05-27 04:31] LABS: Hepatitis C Virus Antibody Reactive (Nonreactive)
[2018-05-27 04:48] LABS: BUN/Creatinine Ratio 18 (6-26); Blood Urea Nitrogen 9 mg/dL (6-20); Calcium 7.8 mg/dL (8.6-10.3); Carbon Dioxide 23 mEq/L (23-29); Chloride 112 mEq/L (98-107); Glucose 230 mg/dL (70-105); Lipase 109 Units/L (11-82); Osmolality,Calculated 302 (280-300); Potassium 3.2 mEq/L (3.5-5.1); Sodium 143 mEq/L (136-145); eGFR For Non-African Americans > 60 (> 60)
[2018-05-27] MEDS: *HR* Heparin 5,000 UNIT/ML VIAL SQ SCH ×2 (05:32→17:10)
[2018-05-27] MEDS: hydrOXYzine pamoate 25 MG CAPSULE PO SCH ×2 (08:51→20:30)
[2018-05-27] MEDS: cloNIDine HCl 0.1 MG TABLET PO SCH ×2 (08:51→20:30)
[2018-05-27] MEDS: Insulin DETEMIR 100 UNIT/ML X5UNITS SQ SCH (08:52)
[2018-05-27] MEDS: *HR* LORazepam 2 MG/ML VIAL IVP PRN ×4 (08:53→22:52)
[2018-05-27] MEDS: Ketorolac 15 MG/ML VIAL IVP PRN ×2 (08:53→22:52)
[2018-05-27] MEDS: Insulin LISPRO 300 UNITS/3 ML VIAL SQ SCH ×4 (09:41→20:23)
[2018-05-27] MEDS: *HR* Promethazine 25 MG/ML VIAL IVP PRN ×2 (09:55→17:10)
--- NOTE | 2018-05-27 11:54 | Internal Med Progress Note ---
Hospitalist Progress Note - Encounter Date of Encounter: 05/27/18 Time of Encounter: 09:00 - Subjective Interval History: Patient has diarrhea, which caused fecal incontinence. Denies urinary incontinence. Patient denies abdominal pain, or nausea vomiting. Complain of mild chest pain. Said valium helps with bilateral leg restlessness symptoms. - Exam Vitals: Temp Pulse Resp BP Pulse Ox 98.5 F 89 20 118/71 98 05/27/18 11:18 05/27/18 11:18 05/27/18 11:18 05/27/18 11:18 05/27/18 11:18 Exam: Pt is AAO x 3, in NAD HEENT: NC/AT, PERRL Neck: Supple, no JVD, no LAD Lungs: CTA b/l Heart: S1S2, RRR Abd: Soft, nontender, BS present Ext: ROM wnl, no pedal edema Neuro: No focal deficit, move 4 limbs - Assessment and Plan (1) DVT prophylaxis Current Visit: Yes Status: Acute Assessment and Plan: Heparin subcutaneously (2) Diabetic ketoacidosis Current Visit: Yes Status: Acute Assessment and Plan: Resolved after treatment. Patient said she did not take insulin for 3 days before admission. Will continue basal and sliding scale insulin coverage. (3) Gram-negative bacteremia Current Visit: Yes Status: Acute Assessment and Plan: Patient has history of IV drug use. Blood culture positive. Empirically on Zosyn. ID consult appreciated. Blood culture was repeated. Follow final results. (4) Hyperammonemia Current Visit: Yes Status: Acute Assessment and Plan: Etiology is undetermined. Possibly due to acute severe illness. Ammonia level get down to normal now (5) IVDU (intravenous drug user) Current Visit: Yes Status: Acute Assessment and Plan: Patient has history of IV drug use. Has positive blood culture. We will continue closely monitor patient. - Hepatitis C positive, HIV negative. Pt is notified the positive result and the need of outpatient follow-up/treatment. - Social work consult on case. (6) Lower extremity pain Current Visit: Yes Status: Acute Assessment and Plan: Patient has lower extremity pain/tingling bilaterally. Spinal CT with contrast shows negative for spinal abscess. Patient may also has withdrawal symptoms. Cont ativan iv PRN (7) Diarrhea Current Visit: Yes Status: Acute Assessment and Plan: We will check GI stool penal. (8) Chest pain Current Visit: Yes Status: Acute Assessment and Plan: Atipycal and mild. Patient denies shortness of breath. Patient has no desaturation or tachycardia. No calf tenderness or leg swelling. - Most likely muscular pain. Will order EKG - Continue closely monitor patient - Time Spent with Patient Total time spent is greater than 50% in coordination of care (as documented) at patient's floor/unit and/or counseling patient: 30 minutes 25 - 35 minutes Plan of Care Discussed with: patient Internal Medicine: Result - Labs CBC & Chem 7: 05/27/18 04:05 05/27/18 04:05 Labs: Short CBC 05/27/18 Range/Units 04:05 WBC 5.3 (4.3-11.1) K/mcL Hgb 9.6 L (11.5-15.4) g/dL Hct 28.5 L (35.3-44.9) % Plt Count 140 (140-400) K/mcL Neutrophils # 2.7 (1.6-8.9) K/mcL BMP 05/27/18 04:05 Sodium 143 Potassium 3.2 L Chloride 112 H Carbon Dioxide 23 BUN 9 Creatinine 0.49 L Glucose 230 H Calcium 7.8 L - ABG Interpretation ABG results: ABG ABG pH 7.09 pH Units (7.32-7.45) L* 05/23/18 19:54 ABG pCO2 < 13 mmHg (35-45) L* 05/23/18 19:54 ABG pO2 129 mmHg (85-104) H 05/23/18 19:54 ABG O2 Saturation TNP 05/23/18 19:54 PT/INR, D-dimer PT 15.7 Seconds (9.4-12.1) H 05/23/18 16:06 - Impressions Impressions Lumbar Spine CT 05/26/18 16:07 IMPRESSION: 1. Motion limited evaluation. 2. No acute osseous abnormality of the lumbar spine. 3. Findings of acute pancreatitis. 4. No evidence of abscess. D/ / Kieran Rao / Kieran Rao Interpreting Provider: Kieran Rao Thoracic Spine CT 05/26/18 16:07 IMPRESSION: 1. No acute osseous abnormality of the thoracic spine. 2. Findings of acute pancreatitis. 3. No evidence of abscess. D/ / Kieran Rao / Kieran Rao Interpreting Provider: Kieran Rao Consult Discharge Plan - Plan Referrals: Lynda Hirsch, SWEATBAND DECORATING MACHINE OPERATOR [Primary Care Provider] - 06/02/18 3:00 pm (2) Diabetic ketoacidosis Qualifiers: Diabetes mellitus type: type 1 Diabetes mellitus complication detail: with coma Qualified Code(s): E10.11 - Type 1 diabetes mellitus with ketoacidosis with coma (6) Lower extremity pain Qualifiers: Laterality: bilateral Qualified Code(s): M79.604 - Pain in right leg; M79.605 - Pain in left leg (7) Diarrhea Qualifiers: Diarrhea type: unspecified type Qualified Code(s): R19.7 - Diarrhea, unspecified (8) Chest pain Qualifiers: Chest pain type: unspecified Qualified Code(s): R07.9 - Chest pain, unspecified
[2018-05-27] MEDS: *HR* HYDROcodone/Acet 5/325 mg TABLET PO PRN ×2 (12:26→18:47)
[2018-05-27] MEDS: Ondansetron 4 MG/2 ML VIAL IVP PRN ×2 (13:13→20:34)
[2018-05-27] MEDS: Melatonin 3 MG TABLET PO PRN (20:30)
[2018-05-28 00:54] LABS: Adenovirus F 40/41 PCR Not detected (Not detect); Astrovirus PCR Not detected (Not detect); C.difficile Toxin A/B Gene PCR Not detected (Not detect); Campylobacter by PCR Not detected (Not detect); Cryptosporidium by PCR Not detected (Not detect); Cyclospora cayetanensis PCR Not detected (Not detect); E. coli O157 by PCR Not detected (Not detect); Entamoeba histolytica PCR Not detected (Not detect); Enteroaggregative E.coli(EAEC) Not detected (Not detect); Enteropathogenic E.coli(EPEC) Not detected (Not detect); Enterotoxigenic E.coli (ETEC) Not detected (Not detect); Giardia lamblia PCR Not detected (Not detect); Norovirus GI/GII PCR Not detected (Not detect); Plesiomonas shigelloides PCR Not detected (Not detect); Rotavirus A PCR Not detected (Not detect); Salmonella PCR Not detected (Not detect); Sapovirus PCR Not detected (Not detect); Shig/EnteroinvasiveE coli EIEC Not detected (Not detect); Shigalike tox-prod E coli STEC Not detected (Not detect); Vibrio PCR Not detected (Not detect); Vibrio cholerae PCR Not detected (Not detect); Yersinia enterocolitica PCR Not detected (Not detect)
[2018-05-28] MEDS: *HR* HYDROcodone/Acet 5/325 mg TABLET PO PRN (02:16)
[2018-05-28] MEDS: *HR* LORazepam 2 MG/ML VIAL IVP PRN (02:55)
[2018-05-28] MEDS: *HR* Heparin 5,000 UNIT/ML VIAL SQ SCH (06:09)
[2018-05-28 07:36] LABS: Basophils % 0.4 %; Eosinophils # 0.2 K/mcL (0.0-0.6); Eosinophils % 3.4 %; Hematocrit 29.3 % (35.3-44.9); Hemoglobin 10.2 g/dL (11.5-15.4); Lymphocytes # 2.6 K/mcL (0.6-4.6); Lymphocytes % 37.5 %; Mean Corpuscular HGB Conc 34.8 g/dL (31.6-35.5); Mean Corpuscular Hemoglobin 27.9 pg (28.0-33.3); Mean Corpuscular Volume 80.3 fL (83.0-100.0); Mean Platelet Volume 9.6 fL (9.4-12.4); Monocytes # 0.5 K/mcL (0.0-1.3); Monocytes % 7.6 %; Neutrophils # 3.4 K/mcL (1.6-8.9); Platelet Count 144 K/mcL (140-400); Red Blood Count 3.65 M/mcL (3.82-4.97); Red Cell Distribution Width 13.7 % (11.5-14.5); Segmented Neutrophils % 50.1 %
[2018-05-28 07:44] LABS: BUN/Creatinine Ratio 11 (6-26); Blood Urea Nitrogen 6 mg/dL (6-20); Calcium 8.3 mg/dL (8.6-10.3); Carbon Dioxide 20 mEq/L (23-29); Chloride 114 mEq/L (98-107); Glucose 213 mg/dL (70-105); Osmolality,Calculated 300 (280-300); Sodium 143 mEq/L (136-145); eGFR For Non-African Americans > 60 (> 60)
[2018-05-28] MEDS: Insulin DETEMIR 100 UNIT/ML X5UNITS SQ SCH (08:34)
[2018-05-28] MEDS: Piperacillin/Tazobactam 3.375 GM in 0.9 % Sodium Chloride Mini Bag 100 ML IVPB SCH (08:34)
[2018-05-28] MEDS: hydrOXYzine pamoate 25 MG CAPSULE PO SCH (08:34)
[2018-05-28] MEDS: cloNIDine HCl 0.1 MG TABLET PO SCH (08:34)
[2018-05-28] MEDS: Insulin LISPRO 300 UNITS/3 ML VIAL SQ SCH (08:35)
[2018-05-28] MEDS: Ketorolac 15 MG/ML VIAL IVP PRN (08:43)
[2018-05-28] MEDS: *HR* Promethazine 25 MG/ML VIAL IVP PRN (10:16)
[2018-05-28] MEDS ORDERED: Insulin LISPRO 300 UNITS/3 ML VIAL SQ SCH ×2 (11:01)
--- NOTE | 2018-05-28 11:01 | Internal Med Progress Note ---
Hospitalist Progress Note - Encounter Date of Encounter: 05/28/18 Time of Encounter: 09:00 - Subjective Interval History: Patient feels leg pain/numbness has improved. Still has diarrhea, C. difficile test negative. Patient is emotional and cries for the information of hep C positive. No fever. Denies chest pain or shortness of breath. Walking around without difficulty. - Exam Vitals: Temp Pulse Resp BP Pulse Ox 98.6 F 69 16 136/85 100 05/28/18 07:59 05/28/18 07:59 05/28/18 07:59 05/28/18 07:59 05/28/18 07:59 Exam: Pt is AAO x 3, in NAD HEENT: NC/AT, PERRL Neck: Supple, no JVD, no LAD Lungs: CTA b/l Heart: S1S2, RRR Abd: Soft, nontender, BS present Ext: ROM wnl, no pedal edema Neuro: No focal deficit, move 4 limbs - Assessment and Plan (1) DVT prophylaxis Current Visit: Yes Status: Acute Assessment and Plan: Heparin subcutaneously (2) Diabetic ketoacidosis Current Visit: Yes Status: Acute Assessment and Plan: Resolved after treatment. Patient said she did not take insulin for 3 days before admission. Will continue basal and sliding scale insulin coverage. (3) Gram-negative bacteremia Current Visit: Yes Status: Acute Assessment and Plan: Patient has history of IV drug use. Blood culture positive. Empirically on Zosyn. ID consult appreciated. Blood culture was repeated. Follow final results. (4) Hyperammonemia Current Visit: Yes Status: Acute Assessment and Plan: Etiology is undetermined. Possibly due to acute severe illness. Ammonia level get down to normal now (5) IVDU (intravenous drug user) Current Visit: Yes Status: Acute Assessment and Plan: Patient has history of IV drug use. Has positive blood culture. We will continue closely monitor patient. - Hepatitis C positive, HIV negative. Pt is notified the positive result and the need of outpatient follow-up/treatment. - Social work consult on case. (6) Lower extremity pain Current Visit: Yes Status: Acute Assessment and Plan: Patient has lower extremity pain/tingling bilaterally. Spinal CT with contrast shows negative for spinal abscess. Patient may also has withdrawal symptoms. Cont ativan iv PRN - Patient has no urinary incontinence. Has fecal incontinence likely due to diarrhea. - Patient walk around without difficulty - Leg pain has improved per patient (7) Diarrhea Current Visit: Yes Status: Acute Assessment and Plan: C. difficile negative. Continue symptomatic treatment (8) Chest pain Current Visit: Yes Status: Acute Assessment and Plan: Atipycal and mild. EKG negative. Patient is totally pain-free now. Most likely muscular pain. No further workup indicated. - Time Spent with Patient Total time spent is greater than 50% in coordination of care (as documented) at patient's floor/unit and/or counseling patient: 30 minutes 25 - 35 minutes Plan of Care Discussed with: patient Internal Medicine: Result - Labs CBC & Chem 7: 05/28/18 04:00 05/28/18 07:19 Labs: Short CBC 05/28/18 Range/Units 04:00 WBC 6.9 (4.3-11.1) K/mcL Hgb 10.2 L (11.5-15.4) g/dL Hct 29.3 L (35.3-44.9) % Plt Count 144 (140-400) K/mcL Neutrophils # 3.4 (1.6-8.9) K/mcL BMP 05/28/18 07:19 Sodium 143 Potassium 4.0 Chloride 114 H Carbon Dioxide 20 L BUN 6 Creatinine 0.57 L Glucose 213 H Calcium 8.3 L - ABG Interpretation ABG results: ABG ABG pH 7.09 pH Units (7.32-7.45) L* 05/23/18 19:54 ABG pCO2 < 13 mmHg (35-45) L* 05/23/18 19:54 ABG pO2 129 mmHg (85-104) H 05/23/18 19:54 ABG O2 Saturation TNP 05/23/18 19:54 PT/INR, D-dimer PT 15.7 Seconds (9.4-12.1) H 05/23/18 16:06 Consult Discharge Plan - Plan Referrals: Lynda Hirsch, ENVIRONMENTAL COMPLIANCE OFFICER [Primary Care Provider] - 06/02/18 3:00 pm (2) Diabetic ketoacidosis Qualifiers: Diabetes mellitus type: type 1 Diabetes mellitus complication detail: with coma Qualified Code(s): E10.11 - Type 1 diabetes mellitus with ketoacidosis with coma (6) Lower extremity pain Qualifiers: Laterality: bilateral Qualified Code(s): M79.604 - Pain in right leg; M79.605 - Pain in left leg (7) Diarrhea Qualifiers: Diarrhea type: unspecified type Qualified Code(s): R19.7 - Diarrhea, unspecified (8) Chest pain Qualifiers: Chest pain type: intercostal pain Qualified Code(s): R07.82 - Intercostal pain
[2018-05-28 12:20] VITALS: BP 144/89
--- NOTE | 2018-05-28 13:36 | Discharge Summary ---
- NOTES TO OUTPATIENT PROVIDER Notes to Outpatient Provider: 1. Please a follow-up with infection disease as outpatient for bacteremia final culture results and hepatitis C treatment. Orders not resulted at time of discharge: Pending orders 05/23/18 17:00 Culture,Blood [BC] Stat 05/25/18 08:50 Culture,Blood [BC] Stat 05/27/18 11:54 EKG [ECG 12 lead ECG] [ECG] Stat Date of Encounter: 05/28/18 Time of Encounter: 13:00 - Discharge Diagnosis (1) DVT prophylaxis Priority: Secondary Status: Acute (2) Diabetic ketoacidosis Priority: Primary Status: Acute Qualifiers: Diabetes mellitus type: type 1 Diabetes mellitus complication detail: with coma Qualified Code(s): E10.11 - Type 1 diabetes mellitus with ketoacidosis with coma (3) Gram-negative bacteremia Priority: Primary Status: Acute (4) Hyperammonemia Priority: Secondary Status: Acute (5) IVDU (intravenous drug user) Priority: Secondary Status: Acute (6) Lower extremity pain Priority: Secondary Status: Acute Qualifiers: Laterality: bilateral Qualified Code(s): M79.604 - Pain in right leg; M79.605 - Pain in left leg (7) Diarrhea Priority: Secondary Status: Acute Qualifiers: Diarrhea type: unspecified type Qualified Code(s): R19.7 - Diarrhea, unspecified Hospital course: Ms. Booker is a 32 year old female was admitted for DKA. Patient was treated with insulin drip, IV fluid, and the DKA protocol. After treatment, patient's DKA resolved. Anion gap closed. Patient was found blood culture positive for gram- negative rods. She was treated with Zosyn empirically. ID consult saw patient. Blood culture repeated. Patient has no further fever or leukocytosis. No endocarditis stigmata. I called the lab today, the final result need 5-7 more days to come back. Repeated blood culture on 05/25 shows no growth so far. We will discharge patient today on by mouth antibiotics to finish totally 14 day course. Will make appointment for patient to see infection disease as outpatient to follow up on final blood culture results and also for hep C treatment. I have seen and examined the patient today. Patient is awake alert, oriented 3. In no acute distress. Complain mild bilateral leg numbness. Patient walk around without difficulty. Vitals are stable. Patient is stable to discharge home and continue by mouth antibiotics. Patient was educated for medication compliance and IV drug use cessation. Patient was advised to come to the emergency room immediately if she has fever/chills or acute sickness. Discharge discussed with: patient Time spent discussing smoking cessation with patient: 3 to 10 minutes - Time Spent with Patient Total time spent providing and/or coordinating discharge services: 40 minutes Time spent: Greater than 30 minutes - Discharge Medications Prescriptions: New Syrge-Ndl,Ins 0.3 ml Half Michael [Insulin Syringe] 1 each MC QID 100 Days #400 disp.syrin Loperamide [Imodium] 2 mg PO Q4HR PRN #24 capsule PRN Reason: Diarrhea Continue Etonogestrel [Nexplanon] 68 mg SQ AD Lisinopril [Zestril] 5 mg PO DAILY Sertraline [Zoloft] 50 mg PO DAILY Insulin LISPRO [HumaLOG] 0 unit SQ DAILY Insulin Glargine [Lantus] 45 unit SQ DAILY Home Medications: Etonogestrel [Nexplanon] 68 mg SQ AD 11/24/17 [History] Insulin Glargine [Lantus] 45 unit SQ DAILY 05/23/18 [History] Insulin LISPRO [HumaLOG] 0 unit SQ DAILY 05/23/18 [History] Lisinopril [Zestril] 5 mg PO DAILY 05/23/18 [History] Sertraline [Zoloft] 50 mg PO DAILY 05/23/18 [History] Amoxicillin/Clavulanate [Augmentin] 875 mg PO BIDWM 12 Days #24 tablet 05/28/18 [Rx] Loperamide [Imodium] 2 mg PO Q4HR PRN #24 capsule 05/28/18 [Rx] Syrge-Ndl,Ins 0.3 ml Half Michael [Insulin Syringe] 1 each MC QID 100 Days #400 disp.syrin 05/28/18 [Rx] Allergies/Adverse Reactions: Allergy/AdvReac Type Severity Reaction Status Date / Time No Known Allergies Allergy Verified 05/23/18 19:36 Date of admission: 05/23/18 16:56 Primary care physician: Lynda Hirsch CNP Consults: 05/25/18 10:00 Consult to Invasive Line Access Team [CONS] Routine Reason for Consult: poor vascular access Line Type: EPIV 05/26/18 11:06 Consult to Infectious Diseases [CONS] Routine Consulting Provider: Infectious Disease Roseline Reason for Consult: bacteremia Call Completed: Yes Discharging clinician: Sofie Ruiz Anticipated date of discharge: 05/28/18 - Constitutional Vitals: Temp Pulse Resp BP Pulse Ox 99.0 F 76 18 144/89 100 05/28/18 12:16 05/28/18 12:16 05/28/18 12:16 05/28/18 12:16 05/28/18 12:16 Exam: Pt is AAO x 3, in NAD HEENT: NC/AT, PERRL Neck: Supple, no JVD, no LAD Lungs: CTA b/l Heart: S1S2, RRR Abd: Soft, nontender, BS present Ext: ROM wnl, no pedal edema Neuro: No focal deficit, patient walking around without difficulty - Patient Status Disposition: Home, Self-Care Condition: Good Functional capacity at discharge: independent ambulation Overall status at discharge: patient is back to baseline - Discharge Instructions Follow Up With: Lynda Hirsch CNP [Primary Care Provider] - 06/02/18 3:00 pm Rosaura Wilson MD [Partnered Physician] - 06/05/18 - Diet and Activity Activity: increase activity as tolerated Diet: diabetic diet
== END 2018-05-28 14:00 | disposition left against medical advice (07) | DRG 637 ==
LOC: EMEROOARM 13:27 → ICNU 16:45 → 2NNU 05-24 17:39 → 2ANU 05-26 12:03
PROVIDERS: ADMIT Internal Medicine Pulmonary Disease; ATTEND Internal Medicine